=== PATIENT | male | born 1960 | race Caucasian/White ===

== ENCOUNTER → 2021-04-12 09:43 | Outpatient (CLI) | payer MEDICARE, BC, SELFPAY ==
--- NOTE | 2021-04-12 09:57 | CT_ITS ---
PROCEDURE: CT LUNG SCREENING CLINICAL INDICATION: H/O NICOTINE DEPENDENCE COMPARISON: No exams were available for comparison TECHNIQUE: The exam was performed on a GE Light Speed [address] scanner using 2.90 mGy CTDI. A low dose helical CT CHEST was performed on a multi-detector scanner. All CT scans at the facility use one or more dose reduction, viz: automated exposure control, ma/kV adjustment per patient size (including targeted exams where dose is matched to indication, i.e. head), or iterative reconstruction technique. The LDCT was performed in a facility that meets the criteria for the screening program. Data regarding this exam was submitted to ACR which is an approved registry. The order for this exam indicates that it came as a result of a lung cancer screening counseling shard decision-making visit that included all the elements required of such a visit including smoking cessation. The radiologist interpreting this exam meets the CMS criteria for the LDCT lung cancer screening program. The exam is reported using the Lung-RADS classification scale and reported to the ACR registry. NOTE: This study was performed for the specific purposes of lung cancer screening and is not an alternative to diagnostic chest CT. RADIATION DOSE: CTDI vol(CT dose Index-volume) = 2.90mG DLP (Dose Length Product) = 109.94 mGcm FINDINGS: COPD. Paraseptal and centrilobular emphysematous changes. Scattered areas of scarring. There is some faint ground-glass attenuation in the left lower lobe. Left hemidiaphragm elevated. OTHER FINDINGS: Splenomegaly at 14 cm. IMPRESSION: Lung-RADS Category 2 Benign Appearance or Behavior Follow-up: Continue annual screening with LDCT in 12 months There is some faint ground-glass attenuation in the left lower lobe. This is nonspecific and could be inflammatory or infectious or related to volume loss with elevated left hemidiaphragm. Splenomegaly Dictated by: Jake Berger MD 04/15/2021 07:42 Jake Berger MD in [place] 04/15/2021 07:42
--- NOTE | 2021-04-12 09:58 | US_ITS ---
PROCEDURE: US ABD. AORTA SCREENING CLINICAL INDICATION: H/O NICOTINE DEPENDENCE COMPARISON: No exams were available for comparison FINDINGS: No evidence of abdominal aortic aneurysm. Proximal common iliacs have an unremarkable appearance. IMPRESSION: Negative for abdominal aortic aneurysm Dictated by: Jake Berger MD 04/12/2021 16:46 Jake Berger MD in [facility] 04/12/2021 16:46
== END ==
PROVIDERS: PCP Internal Medicine Adolescent Medicine; Visit Provider Internal Medicine Adolescent Medicine
DX: Z87.891 Personal history of nicotine dependence (principal); Z12.2 Encounter for screening for malignant neoplasm of respiratory organs
CPT/HCPCS: 71271; 76705

== ENCOUNTER → 2021-06-12 16:00 | Outpatient (CLI) | payer MEDICARE, BC, SELFPAY ==
[2021-06-12 18:05] LABS: Basophils # 0.1 K/mm3 (0-0.2); Basophils % 1.4 % (0.1-2.0); Eosinophils # 0.3 K/mm3 (0.0-0.4); Eosinophils % 2.8 % (0.1-12.0); Hematocrit 47.5 % (42.0-52.0); Hemoglobin 15.2 g/dL (14.1-18.0); Lymphocytes # 2.4 K/mm3 (0.7-4.5); Lymphocytes % 25.8 % (10-50); Mean Corpuscular Hemoglobin 29.4 pg (27.0-31.2); Mean Corpuscular Volume 92.1 fl (80-94); Mean Platelet Volume 10.4 fl (7.4-10.4); Monocytes # 0.6 K/mm3 (0.1-1.0); Monocytes % 6.4 % (1.7-9.3); Neutrophils % 63.6 % (37.0-80.0); Platelet Count 212 K/mm3 (142-424); Red Blood Count 5.16 M/mm3 (4.60-6.20); Red Cell Distribution Width 14.9 % (11.5-17.5); White Blood Count 9.4 K/mm3 (4.8-10.8)
[2021-06-12 18:09] LABS: Alanine Aminotransferase 67 U/L (12-78); Albumin/Globulin Ratio 1.4 (1.1-1.8); Alkaline Phosphatase 98 U/L (38-126); Anion Gap 12.5 mEq/L (5-15); Aspartate Amino Transferase 113 U/L (17-59); Bilirubin,Total 0.5 mg/dl (0.2-1.3); Blood Urea Nitrogen 18 mg/dl (9-20); Calcium 9.4 mg/dl (8.4-10.2); Carbon Dioxide 24 mmol/L (22.0-30.0); Chloride 101 mmol/L (98-107); Chol/HDL Ratio 4.1 (1-3.5); Cholesterol 127 mg/dl (140-200); Estimated Glomerular Filt Rate 56 ml/min (>60); GFR (African American) 67 ML/MIN (>60); Globulin 2.8 g/dL (1.3-3.2); Glucose 255 mg/dl (74-100); HDL Cholesterol 31 mg/dl (40-60); Potassium 4.5 mmoL/L (3.5-5.1); Sodium 133 mmol/L (136-145); Total Protein,Serum 6.8 g/dl (6.3-8.2)
[2021-06-12 18:17] LABS: Triglycerides 427 mg/dl (30-150)
[2021-06-12 18:18] LABS: Hemoglobin A1C 8.9 % (4.0-6.0)
[2021-06-12 18:19] LABS: Direct LDL Cholesterol 56.94 mg/dL (100-129)
[2021-06-12 18:27] LABS: 25-OH Vitamin D, Total 31.7 ng/mL (30-100); Free T4 (Free Thyroxine) 1.69 ng/dl (0.78-2.19)
[2021-06-12 18:41] LABS: Thyroid Stimulating Hormone 0.81 uIU/mL (0.465-4.68)
[2021-06-14 11:24] LABS: C-Peptide 3.3 ng/mL (1.1-4.4)
== END ==
PROVIDERS: Visit Provider Emergency Medicine
DX: E13.9 Other specified diabetes mellitus without complications (principal); E55.9 Vitamin D deficiency, unspecified
CPT/HCPCS: 80053; 80061; 82306; 83036; 84439; 84443; 84681; 85025

== ENCOUNTER → 2021-06-19 09:55 | Outpatient (CLI) | payer MEDICARE, BC, SELFPAY ==
--- NOTE | 2021-06-19 09:56 | CA_ITS ---
APPROVED REPORT EXAM: Comprehensive 2D, Doppler, and color-flow Echocardiogram Match Up Worker: Elena Lewis RDCS Ht: 6 ft 2 in Wt: 295lbs BSA: 2.56 BP: 140/80 mmHg Indications: HX OF AF,COPD,HTN,DM,MORBID OBESITY M-Mode Dimensions RVDd 2.05 cm (0.9-2.6) LA Diam 3.27 cm (1.9-4.0) LVDd 5.55 cm (3.5-5.7) Ao Diam 3.35 cm (2.0-3.7) LVDs 4.06 cm (3.5-5.7) IVSd 0.88 cm (0.6-1.1) PWd 0.92 cm (0.6-1.1) EF (Teich) 51.80% FS 26.80% EDV (Teich) 150.50 mL ESV (Teich) 72.50 mL LV Diastology E Decel Time 220.00 (160-240 msec) E/A Ratio 1.0 MED E' 6.00 (< 7 cm/sec) E'/MED E' Ratio 16.20 (>14) Mitral Valve MV E Max Dominic. 97.00 (40-130 cm/s) MV A Velocity 100.00 (40-130 cm/s) E/A Ratio 0.97 MV Decel. Time 220.00 (160-240 ms) MV PHT 64.00 ms Left Ventricle Left atrium is mildly enlarged, left ventricle is normal size, mild concentric left ventricular hypertrophy, visually estimated ejection fraction 50% with no obvious regional wall motion abnormality, endocardial surfaces are poorly visualized, diastolic parameters are inconclusive in the study. Right Ventricle Right atrium and right ventricle are mildly enlarged with normal contractility. Aortic Valve Aortic valve is minimally thickened and fibrosed, there is no aortic stenosis or aortic insufficiency. Mitral Valve Mitral valve is grossly normal, there is trace mitral regurgitation. Tricuspid Valve Tricuspid valve grossly normal, there is trace tricuspid regurgitation, tricuspid regurgitation jet velocity is inadequate for calculation of the right ventricular systolic pressure. Pulmonic Valve Pulmonic valve is poorly visualized. Great Vessels Aortic root is normal size. Inferior vena cava is poorly visualized. Pericardium No significant pericardial effusion noted. Conclusion 1. Mild biatrial enlargement, normal left ventricular size, mild concentric left ventricular hypertrophy, visually estimated ejection fraction 50% with no obvious regional wall motion abnormality, diastolic parameters are inconclusive in the study. 2. Mildly enlarged right ventricle with normal contractility. 3. Trace mitral and tricuspid regurgitation. 4. No significant pericardial effusion. 5. Inferior vena cava is poorly visualized. Electronically signed by : Juan Phillips MD 06/19/2021 20:06:05
[2021-06-19 12:11] LABS: Prostate Specific Ag Screen 1.6 ng/ml (0.0-4.0)
[2021-06-20 12:35] LABS: Hep A Ab, IgM Negative (Negative); Hepatitis B Core Antibody IgM Negative (Negative); Hepatitis B Surface Antigen Negative (Negative); Hepatitis C Antibody <0.1 s/co ratio (0.0-0.9)
== END ==
PROVIDERS: PCP Emergency Medicine; Visit Provider Emergency Medicine
DX: E13.9 Other specified diabetes mellitus without complications (principal); R01.1 Cardiac murmur, unspecified; Z12.5 Encounter for screening for malignant neoplasm of prostate; R74.01 Elevation of levels of liver transaminase levels; Z79.4 Long term (current) use of insulin; Z72.0 Tobacco use
CPT/HCPCS: 36415; 80074; 93306; G0103

== ENCOUNTER → 2021-08-21 09:30 | Outpatient (CLI) | payer MEDICARE, BC, SELFPAY ==
[2021-08-21 20:14] LABS: Barbiturates Screen,Urine Negative ng/ml (<200)
[2021-08-21 20:15] LABS: Benzodiazepines Screen,Urine Negative ng/ml (<200)
[2021-08-21 20:16] LABS: Amphetamine/Metha Screen,Urine Negative ng/ml (<1000); Cannabinoid Screen,Urine Negative ng/ml (<50)
[2021-08-21 20:17] LABS: Cocaine Screen,Urine Negative ng/ml (<300); Methadone Screen,Urine Negative ng/ml (<300)
[2021-08-21 20:18] LABS: Opiate Screen,Urine Negative ng/ml (<300)
[2021-08-21 20:19] LABS: Phencyclidine Screen,Urine Negative ng/ml (<25)
== END ==
PROVIDERS: Visit Provider Emergency Medicine
DX: Z79.899 Other long term (current) drug therapy (principal)
CPT/HCPCS: 80305

== ENCOUNTER → 2021-10-16 07:09 | Outpatient (CLI) | payer MEDICARE, BC, SELFPAY ==
[2021-10-15 19:08] LABS: Basophils % 0.2 % (0.1-2.0); Eosinophils # 0.1 K/mm3 (0.0-0.4); Eosinophils % 1.9 % (0.1-12.0); Hematocrit 49.1 % (42.0-52.0); Hemoglobin 16.1 g/dL (14.1-18.0); Lymphocytes # 2.1 K/mm3 (0.7-4.5); Lymphocytes % 28.2 % (10-50); Mean Corpuscular HGB Conc 32.8 g/dL (31.8-35.4); Mean Corpuscular Hemoglobin 30.3 pg (27.0-31.2); Mean Corpuscular Volume 92.4 fl (80-94); Mean Platelet Volume 10.5 fl (7.4-10.4); Monocytes # 0.6 K/mm3 (0.1-1.0); Monocytes % 7.4 % (1.7-9.3); Neutrophils # 4.7 K/mm3 (1.8-7.8); Neutrophils % 62.6 % (37.0-80.0); Platelet Count 176 K/mm3 (142-424); Red Blood Count 5.31 M/mm3 (4.60-6.20); Red Cell Distribution Width 14.7 % (11.5-17.5); White Blood Count 7.5 K/mm3 (4.8-10.8)
[2021-10-15 19:42] LABS: Alanine Aminotransferase 92 U/L (12-78); Albumin Level 3.9 g/dl (3.5-5.0); Albumin/Globulin Ratio 1.2 (1.1-1.8); Alkaline Phosphatase 123 U/L (38-126); Anion Gap 13.9 mEq/L (5-15); Aspartate Amino Transferase 168 U/L (17-59); Bilirubin,Total 0.2 mg/dl (0.2-1.3); Blood Urea Nitrogen 21 mg/dl (9-20); Calcium 9.7 mg/dl (8.4-10.2); Carbon Dioxide 28 mmol/L (22.0-30.0); Chloride 93 mmol/L (98-107); Chol/HDL Ratio 4.1 (1-3.5); Cholesterol 147 mg/dl (140-200); Estimated Glomerular Filt Rate 47 ml/min (>60); GFR (African American) 57 ML/MIN (>60); Globulin 3.2 g/dL (1.3-3.2); Glucose 309 mg/dl (74-100); HDL Cholesterol 36 mg/dl (40-60); Potassium 4.9 mmoL/L (3.5-5.1); Sodium 130 mmol/L (136-145); Total Protein,Serum 7.1 g/dl (6.3-8.2); Triglycerides 393 mg/dl (30-150); VLDL Cholesterol 79 mg/dL (0-40)
[2021-10-15 19:54] LABS: Direct LDL Cholesterol 53.34 mg/dL (100-129)
[2021-10-15 19:59] LABS: Hemoglobin A1C 8.9 % (4.0-6.0)
== END ==
PROVIDERS: PCP Emergency Medicine; Visit Provider Emergency Medicine
DX: E13.9 Other specified diabetes mellitus without complications (principal); E66.9 Obesity, unspecified; Z68.38 Body mass index [BMI] 38.0-38.9, adult; Z79.4 Long term (current) use of insulin
CPT/HCPCS: 80053; 80061; 83036; 85025

== ENCOUNTER → 2021-10-29 08:45 | Outpatient (CLI) | payer MEDICARE, BC, SELFPAY ==
--- NOTE | 2021-10-29 08:45 | US_ITS ---
FINAL REPORT CLINICAL HISTORY: elevated liver enzymes; obesity FINDINGS: Sonographic images of the abdomen were obtained. The liver has an unremarkable appearance with normal echogenicity. The gallbladder has an unremarkable appearance without evidence of gallstones. There is no evidence of biliary ductal dilatation. The common hepatic duct measures 4 mm, which is within normal limits. Limited images of the pancreas are unremarkable. The spleen is enlarged measuring 14.5 cm. The right kidney measures 10.6 cm in length. There are 3 right renal cysts measuring up to 2.7 cm The left kidney measures 12.0 cm in length. There is normal renal echogenicity. There is no evidence of hydronephrosis. The aorta has an unremarkable appearance. Limited images of the inferior vena cava are unremarkable. IMPRESSION: Splenomegaly. Right renal cysts. Reviewed, Interpreted and Dictated by Thad Johansen III, MD Transcribed by Cleo Best Authenticated and [facility]
== END ==
PROVIDERS: PCP Emergency Medicine; Visit Provider Emergency Medicine
DX: R74.8 Abnormal levels of other serum enzymes (principal)
CPT/HCPCS: 76700

== ENCOUNTER → 2021-11-06 07:08 | Outpatient (CLI) | payer MEDICARE, BC, SELFPAY ==
[2021-11-05 20:21] LABS: Hemoglobin A1C 8.8 % (4.0-6.0)
== END ==
PROVIDERS: PCP Emergency Medicine; Visit Provider Emergency Medicine
DX: E13.9 Other specified diabetes mellitus without complications (principal); Z79.4 Long term (current) use of insulin
CPT/HCPCS: 83036

== ENCOUNTER → 2022-01-02 14:54 | Outpatient (POV) | payer MEDICARE, BC, SELFPAY | PROVIDERS: Visit Provider Internal Medicine Nephrology | DX: Z00.00 Encounter for general adult medical examination without abnormal findings (principal) ==

== ENCOUNTER → 2022-01-13 13:31 | Outpatient (CLI) | payer MEDICARE, BC, SELFPAY ==
[2022-01-13 16:20] LABS: Microscopic, Urine URINE MICROSCOPIC (MICROSCOPIC)
[2022-01-13 18:20] LABS: Appearance,Urine CLEAR (Clear); Bilirubin,Urine Negative (Negative); Blood, Urine Negative (Negative); Color,Urine YELLOW (Yellow); Glucose,Urine (UA) 1+ (Negative); Ketones,Urine Negative (Negative); Leukocyte Esterase,Urine Negative (Negative); Nitrate,Urine Negative (Negative); Protein,Urine Negative (Negative); Urobilinogen,Urine 0.2 EU/dl (0.2)
[2022-01-13 18:20] LABS: Hematocrit 48.3 % (42.0-52.0); Hemoglobin 15.2 g/dL (14.1-18.0); Mean Corpuscular HGB Conc 31.6 g/dL (31.8-35.4); Mean Corpuscular Hemoglobin 30.1 pg (27.0-31.2); Mean Corpuscular Volume 95.3 fl (80-94); Platelet Count 256 K/mm3 (142-424); Red Blood Count 5.07 M/mm3 (4.60-6.20); Red Cell Distribution Width 14.8 % (11.5-17.5); White Blood Count 11.8 K/mm3 (4.8-10.8)
[2022-01-13 18:42] LABS: Creatinine,Urine Random 59 mg/dL (Not Estab.)
[2022-01-13 20:39] LABS: Hemoglobin A1C 8.6 % (4.0-6.0)
[2022-01-13 20:43] LABS: Anion Gap 17.2 mEq/L (5-15); Blood Urea Nitrogen 29 mg/dl (9-20); Calcium 9.3 mg/dl (8.4-10.2); Carbon Dioxide 32 mmol/L (22.0-30.0); Chloride 92 mmol/L (98-107); Estimated Glomerular Filt Rate 38 ml/min (>60); GFR (African American) 46 ML/MIN (>60); Glucose 136 mg/dl (74-100); Phosphorous 3.6 mg/dl (2.5-4.5); Potassium 5.2 mmoL/L (3.5-5.1); Sodium 136 mmol/L (136-145)
[2022-01-13 21:51] LABS: Bacteria,Urine Trace /lpf; WBC,Urine Occasional #/hpf (0-3)
== END ==
PROVIDERS: PCP Emergency Medicine; Visit Provider Internal Medicine Nephrology
DX: E13.9 Other specified diabetes mellitus without complications (principal); N18.30 Chronic kidney disease, stage 3 unspecified
CPT/HCPCS: 36415; 80069; 81001; 82570; 83036; 84155; 85014; 85018; 85048; 85049

== ENCOUNTER → 2022-04-14 13:03 | Outpatient (POV) | payer MEDICARE, MEDICAID, SELFPAY | PROVIDERS: Visit Provider Internal Medicine Nephrology | DX: Z00.00 Encounter for general adult medical examination without abnormal findings (principal) ==

== ENCOUNTER → 2022-06-11 23:30 | Outpatient (CLI) | payer MEDICARE, MEDICAID, SELFPAY ==
[2022-06-11 19:21] LABS: Anion Gap 11.7 mEq/L (5-15); Blood Urea Nitrogen 12 mg/dl (9-20); Calcium 9.1 mg/dl (8.4-10.2); Carbon Dioxide 28 mmol/L (22.0-30.0); Chloride 100 mmol/L (98-107); Estimated Glomerular Filt Rate 51 ml/min (>60); GFR (African American) 62 ML/MIN (>60); Glucose 261 mg/dl (74-100); Potassium 4.7 mmoL/L (3.5-5.1); Sodium 135 mmol/L (136-145)
[2022-06-13 11:55] LABS: C-Peptide 7.3 ng/mL (1.1-4.4)
== END ==
PROVIDERS: PCP Emergency Medicine; Visit Provider Emergency Medicine
DX: E13.9 Other specified diabetes mellitus without complications (principal); Z79.4 Long term (current) use of insulin
CPT/HCPCS: 80048; 84681

== ENCOUNTER → 2022-08-21 16:06 | Outpatient (CLI) | payer MEDICARE, MEDICAID, SELFPAY | PROVIDERS: PCP Nurse Practitioner Family; Visit Provider Nurse Practitioner Family | DX: N39.0 Urinary tract infection, site not specified (principal) | CPT/HCPCS: 87086 ==

== ENCOUNTER → 2022-10-03 10:22 | Outpatient (CLI) | payer MEDICARE, MEDICAID, SELFPAY ==
[2022-10-03 18:16] LABS: Basophils % 0.3 % (0.1-2.0); Eosinophils # 0.3 K/mm3 (0.0-0.4); Hematocrit 47.3 % (42.0-52.0); Hemoglobin 15.1 g/dL (14.1-18.0); Lymphocytes # 2.5 K/mm3 (0.7-4.5); Lymphocytes % 25.3 % (10-50); Mean Corpuscular HGB Conc 31.9 g/dL (31.8-35.4); Mean Corpuscular Hemoglobin 28.7 pg (27.0-31.2); Mean Corpuscular Volume 89.9 fl (80-94); Mean Platelet Volume 9.7 fl (7.4-10.4); Monocytes # 0.6 K/mm3 (0.1-1.0); Monocytes % 6.5 % (1.7-9.3); Neutrophils # 6.4 K/mm3 (1.8-7.8); Neutrophils % 64.9 % (37.0-80.0); Platelet Count 187 K/mm3 (142-424); Red Blood Count 5.26 M/mm3 (4.60-6.20); Red Cell Distribution Width 15.2 % (11.5-17.5); White Blood Count 9.9 K/mm3 (4.8-10.8)
[2022-10-03 18:34] LABS: Alanine Aminotransferase 79 U/L (12-78); Albumin/Globulin Ratio 1.3 (1.1-1.8); Alkaline Phosphatase 116 U/L (38-126); Anion Gap 15.6 mEq/L (5-15); Aspartate Amino Transferase 115 U/L (17-59); Bilirubin,Total 0.5 mg/dl (0.2-1.3); Blood Urea Nitrogen 24 mg/dl (9-20); Calcium 9.5 mg/dl (8.4-10.2); Carbon Dioxide 26 mmol/L (22.0-30.0); Chloride 97 mmol/L (98-107); Chol/HDL Ratio 3.7 (1-3.5); Cholesterol 138 mg/dl (140-200); Estimated Glomerular Filt Rate 47 ml/min (>60); GFR (African American) 57 ML/MIN (>60); Globulin 3.2 g/dL (1.3-3.2); Glucose 168 mg/dl (74-100); HDL Cholesterol 37 mg/dl (40-60); Potassium 4.6 mmoL/L (3.5-5.1); Sodium 134 mmol/L (136-145); Total Protein,Serum 7.2 g/dl (6.3-8.2); Triglycerides 318 mg/dl (30-150); VLDL Cholesterol 64 mg/dL (0-40)
[2022-10-03 18:44] LABS: Direct LDL Cholesterol 57.99 mg/dL (100-129)
[2022-10-03 18:45] LABS: Hemoglobin A1C 7.9 % (4.0-6.0)
[2022-10-03 18:48] LABS: T4 (Thyroxine) 10.8 ug/dl (5.53-11.0)
[2022-10-03 18:54] LABS: 25-OH Vitamin D, Total 39.4 ng/mL (30-100)
[2022-10-03 19:08] LABS: Thyroid Stimulating Hormone 0.55 uIU/mL (0.465-4.68)
[2022-10-03 19:09] LABS: Amphetamine/Metha Screen,Urine Negative ng/ml (<1000)
[2022-10-03 19:10] LABS: Barbiturates Screen,Urine Negative ng/ml (<200); Benzodiazepines Screen,Urine Negative ng/ml (<200)
[2022-10-03 19:11] LABS: Cannabinoid Screen,Urine Negative ng/ml (<50)
[2022-10-03 19:12] LABS: Cocaine Screen,Urine Negative ng/ml (<300); Methadone Screen,Urine Negative ng/ml (<300)
[2022-10-03 19:13] LABS: Opiate Screen,Urine Negative ng/ml (<300)
[2022-10-03 19:15] LABS: Phencyclidine Screen,Urine Negative ng/ml (<25)
[2022-10-03 19:43] LABS: Creatinine,Urine Random 690 mg/dL (Not Estab.); Microalbumin/Creatinine Ratio 5.1
[2022-10-06 15:29] LABS: C-Peptide 5.1 ng/mL (1.1-4.4)
== END ==
LOC: LAB.DROPOF 10-04 10:23
PROVIDERS: PCP Emergency Medicine; Visit Provider Emergency Medicine
DX: E11.9 Type 2 diabetes mellitus without complications; L03.90 Cellulitis, unspecified; N18.30 Chronic kidney disease, stage 3 unspecified; Z79.899 Other long term (current) drug therapy; B95.7 Other staphylococcus as the cause of diseases classified elsewhere
CPT/HCPCS: 80053; 80061; 80305; 82043; 82306; 82570; 83036; 84436; 84443; 84681; 85025; 87070; 87186; 87205

== ENCOUNTER → 2022-10-13 13:57 | Outpatient (CLI) | payer MEDICARE, MEDICAID, SELFPAY ==
[2022-10-13 14:08] LABS: Microscopic, Urine URINE MICROSCOPIC (MICROSCOPIC)
[2022-10-13 14:44] LABS: Hemoglobin 14.9 g/dL (14.1-18.0); Mean Corpuscular HGB Conc 31.6 g/dL (31.8-35.4); Mean Corpuscular Hemoglobin 28.5 pg (27.0-31.2); Mean Corpuscular Volume 90.3 fl (80-94); Platelet Count 170 K/mm3 (142-424); Red Blood Count 5.21 M/mm3 (4.60-6.20); Red Cell Distribution Width 14.9 % (11.5-17.5); White Blood Count 8.8 K/mm3 (4.8-10.8)
[2022-10-13 15:27] LABS: Creatinine,Urine Random 31 mg/dL (Not Estab.)
[2022-10-13 15:35] LABS: Albumin Level 3.9 g/dl (3.5-5.0); Anion Gap 14.3 mEq/L (5-15); Blood Urea Nitrogen 21 mg/dl (9-20); Calcium 9.2 mg/dl (8.4-10.2); Carbon Dioxide 29 mmol/L (22.0-30.0); Chloride 97 mmol/L (98-107); Estimated Glomerular Filt Rate 51 ml/min (>60); GFR (African American) 62 ML/MIN (>60); Glucose 147 mg/dl (74-100); Phosphorous 3.5 mg/dl (2.5-4.5); Potassium 5.3 mmoL/L (3.5-5.1); Sodium 135 mmol/L (136-145)
[2022-10-13 21:05] LABS: Appearance,Urine CLEAR (Clear); Bilirubin,Urine Negative (Negative); Blood, Urine Negative (Negative); Glucose,Urine (UA) 1+ (Negative); Ketones,Urine Negative (Negative); Leukocyte Esterase,Urine Negative (Negative); Nitrate,Urine Negative (Negative); PH,Urine 6.5 (5.0-8.5); Protein,Urine Negative (Negative); Urobilinogen,Urine 0.2 EU/dl (0.2)
[2022-10-13 21:06] LABS: Color,Urine Yellow (Yellow)
[2022-10-13 22:06] LABS: Squamous Epithelial Cell,Urine Occasional #/hpf (0-5)
== END ==
PROVIDERS: PCP Emergency Medicine; Visit Provider Internal Medicine Nephrology
DX: N18.30 Chronic kidney disease, stage 3 unspecified (principal)
CPT/HCPCS: 36415; 80069; 81001; 82570; 84155; 85014; 85018; 85048; 85049

== ENCOUNTER → 2022-11-10 07:59 | Outpatient (CLI) | payer MEDICARE, MEDICAID, SELFPAY ==
[2022-11-10 08:47] LABS: Basophils # 0.1 K/mm3 (0-0.2); Basophils % 0.7 % (0.1-2.0); Eosinophils # 0.5 K/mm3 (0.0-0.4); Eosinophils % 5.3 % (0.1-12.0); Hematocrit 48.8 % (42.0-52.0); Hemoglobin 15.8 g/dL (14.1-18.0); Lymphocytes # 2.7 K/mm3 (0.7-4.5); Lymphocytes % 32.5 % (10-50); Mean Corpuscular HGB Conc 32.4 g/dL (31.8-35.4); Mean Corpuscular Hemoglobin 28.7 pg (27.0-31.2); Mean Corpuscular Volume 88.7 fl (80-94); Mean Platelet Volume 8.9 fl (7.4-10.4); Monocytes # 0.6 K/mm3 (0.1-1.0); Neutrophils # 4.5 K/mm3 (1.8-7.8); Neutrophils % 54.5 % (37.0-80.0); Platelet Count 167 K/mm3 (142-424); Red Blood Count 5.49 M/mm3 (4.60-6.20); Red Cell Distribution Width 14.7 % (11.5-17.5); White Blood Count 8.3 K/mm3 (4.8-10.8)
[2022-11-10 10:15] LABS: Alanine Aminotransferase 72 U/L (12-78); Albumin Level 4.3 g/dl (3.5-5.0); Alkaline Phosphatase 94 U/L (38-126); Aspartate Amino Transferase 109 U/L (17-59); Blood Urea Nitrogen 26 mg/dl (9-20); Calcium 9.8 mg/dl (8.4-10.2); Carbon Dioxide 30 mmol/L (22.0-30.0); Chloride 98 mmol/L (98-107); Chol/HDL Ratio 3.9 (1-3.5); Cholesterol 136 mg/dl (140-200); Estimated Glomerular Filt Rate 41 ml/min (>60); GFR (African American) 49 ML/MIN (>60); Glucose 84 mg/dl (74-100); HDL Cholesterol 35 mg/dl (40-60); Magnesium 1.7 mg/dl (1.6-2.3); Sodium 136 mmol/L (136-145); Total Protein,Serum 7.8 g/dl (6.3-8.2); Triglycerides 291 mg/dl (30-150); VLDL Cholesterol 58 mg/dL (0-40)
[2022-11-10 10:26] LABS: Direct LDL Cholesterol 53.94 mg/dL (100-129)
[2022-11-11 00:03] LABS: Bilirubin,Direct 0.6 mg/dl (0.0-0.4)
[2022-11-11 00:04] LABS: Bilirubin,Total 0.6 mg/dl (0.2-1.3)
== END ==
PROVIDERS: PCP Emergency Medicine; Visit Provider Nurse Practitioner
DX: R07.9 Chest pain, unspecified (principal); N18.30 Chronic kidney disease, stage 3 unspecified; R06.00 Dyspnea, unspecified; E13.9 Other specified diabetes mellitus without complications; Z79.4 Long term (current) use of insulin
CPT/HCPCS: 80048; 80061; 80076; 83735; 85025

== ENCOUNTER → 2022-11-14 13:49 | Outpatient (POV) | payer MEDICARE, MEDICAID, SELFPAY | PROVIDERS: Visit Provider Internal Medicine Nephrology | DX: Z00.00 Encounter for general adult medical examination without abnormal findings (principal) ==

== ENCOUNTER → 2022-11-20 06:36 | Outpatient (CLI) | payer MEDICARE, MEDICAID, SELFPAY ==
--- NOTE | 2022-11-20 | CA_ITS ---
APPROVED REPORT Exam: Pharmacologic Technologist: Coleen Allan, Ht: 6 ft 2 in Wt: 304 lbs BSA: 2.60 m2 HR: 64 bpm BP: 139/77 mmHg Rhythm: NSR, NON-SPECIFIC T-WAVE CHANGES IN INFERIOR LEADS Medical History Medical History: HTN, Hyperlipidemia, Diabetes, Smoking Medications: Lovastatin,,,,, Duoneb,,,,, TAMSULOSIN,,,,, Albuterol,,,,, Lansoprazole,,,,, MeLOXICAM,,,,, Humulin R,,,,, Cyclobenzaprine,,,,, Pregabalin,,,,, FeNOfibrate Micronized,,,,, BuMETANIDE,,,,, Apixaban,,,,, Allergies: No known drug allergies Cardiac Risk Factors: HTN, Hyperlipidemia, Diabetes , , Smoking Stress Test Details Test: LEXISCAN HR Resting HR: 68 bpm Max Heart Rate (APMHR): 156 bpm Max HR Achieved: 100 bpm Target HR (85% APMHR): 133 bpm % of APMHR: 64 Recovery HR: 77 bpm BP Resting BP: 139/77 mmHg Max BP: 177/85 mmHg Recovery BP: 166.0/76.0 mmHg ECG Resting ECG: NSR, T-WAVE CHANGES IN INFERIOR LEADS Stress ECG: NO CHANGE Arrhythmia: NONE Recovery ECG: NO CHANGE Recovery Arrhythmia: NONE Clinical Exercise duration: 04:00 min Highest Stage Achieved: Exercise capacity: 1.0 METs Stress ECG Conclusion PT HAD SOA, AND HEAD DISCOMFORT. NO CP NON-DIAGNOSTIC LEXISCAN STRESS TEST DUE TO BASELINE ST-T ABNORMALITIES MYOVIEW IMAGES REPORTED SEPARATELY Test Summary REST 02:35 . . 68 . 139/ 77 . . Stage 1 01:00 . . 85 . . . . Stage 2 01:00 . . 99 . . . . Stage 3 01:00 . . 96 . 128/ 86 . . Stage 4 01:00 . . 85 . 170/ 81 . Stop exercise at 04:00 RECOVERY 01:00 . . 82 . . . . RECOVERY 02:00 . . 78 . 166/ 79 . . RECOVERY 03:00 . . 77 . 166/ 79 . . RECOVERY 03:41 . . 79 . 166/ 76 . . Electronically signed by : Alexus Matos, 11/21/2022 12:45:26
--- NOTE | 2022-11-20 06:45 | NM_ITS ---
APPROVED REPORT Exam: Nuclear Stress Test Indication: chest pain..soa Patient Location: Outpatient Stress Tech: Coleen Allan Ht: 6 ft 2 in Wt: 298 lbs HR: 68 bpm BP: 139/77 mmHg BSA: 2.58 m2 Rhythm: NSR TID: 1.22 BMI: 38.2 History: chest pain..soa Procedure: Patient received 0.4 mg of intravenous Lexiscan, resting heart rate 68 bpm, resting blood pressure 139/77 mmHg, with Lexiscan maximum heart rate achieved was 100 bpm which is 85 % of the maximum predicted heart rate and blood pressure was 177/85 mmHg. With Lexiscan, patient denied any complaint of chest pain. Cardiac Stress and Resting SPECT Images: Cardiac Stress and Resting SPECT images were obtained using technetium 99m Myoview 31.4 mCi stress and 10.98 mCi at rest. Resting and stress imaging in both supine and prone positions demonstrate a medium sized, moderate, predominantly fixed perfusion defect basal to mid inferior and inferoseptal LV abbott, with some surrounding regions of reversibility. Gated imaging demonstrates normal global and regional LV systolic function. LVEF is calculated at 61%. Conclusion: Medium sized, moderate, predominantly fixed perfusion defect basal to mid inferior and inferoseptal LV abbott, with some surrounding regions of reversibility. Gated imaging demonstrates normal global and regional LV systolic function. LVEF is calculated at 61%. Electronically signed by : Alexus Matos, 11/21/2022 12:51:33
== END ==
LOC: RAD 06:36
PROVIDERS: PCP Emergency Medicine; Visit Provider Nurse Practitioner
DX: R07.9 Chest pain, unspecified (principal)
CPT/HCPCS: 78452; 93017; A9502; J2785

== ENCOUNTER 2022-11-25 15:00 | Outpatient (RCR) | payer MEDICARE, MEDICAID, SELFPAY ==
--- NOTE | 2022-10-27 12:01 | HMH.PTOPWND ---
Rehab Outpt Wound Evaluation Rehab OP Wound Evaluation Start: 10/27/22 10:52 Freq: Status: Active Protocol: Document 10/27/22 11:26 NIKA (Rec: 10/27/22 12:00 PHORCORDELL [id number]) E-signed By Jaswant Villarreal, PT Subjective/History History History This is the initial PT eval for Andry Qureshi, 62 yowm who presents with chronic B LE edema, L greater than R, x ~ 4 yrs. He reports initially having a bout of cellulitis in his L lower leg due to a spider bite and he has been dealing with issues ever since . He reports no pain associated with the edema, but he does have intermittent pain due to neuropathy. He has no palpation tenderness at this time as well. He has PMH of HTN, DM, HLD, a-fib with anticoagulaion. Subjective Subjective He presents with 1+ pitting edema to the R lower leg, 2+ pitting edema to the L lower leg. Considerable hemosiderin staining to the L lower leg and mild on the R lower leg. Lymphedema Eval Classification of Lymphedema Secondary Lymphedema Yes: CVI and Neuropathy Stemmer's sign Stemmer's Sign no Stage of Lymphedema Lymphedema stages Stage I (Pitting edema, reduces w/ elevation, no fibrosis) Skin Changes Dry Skin Yes Taut, Shiny Skin Yes: scar tissue Redness Yes Brittle Uneven Nails Yes Discoloration of Skin Yes: hemosiderin staining Other Changes Yes: neuropathy Pain Scale Pain Scale (0-10) 0 Affected Extremities Areas Affected by Lymphedema/Edema Right Lower Extremity,Left Lower Extremity Manual Lymphatic Drainage Treatment Area MLD Treatment Area Right Lower Extremity,Left Lower Extremity Wound Problems/Impairments Impairments Problems/Impairmments Impaired Endurance,Impaired Walking,Impaired Standing, Impaired Recreational Activities,Increased Edema, Lymphedema Present,Subjective C/O Pain,Impaired Self C
--- NOTE | 2022-11-25 16:17 | HMH.RHREAS ---
Rehab Reassessment Rehab OP Re-assessment Start: 10/27/22 10:52 Freq: Status: Active Protocol: Document 11/25/22 16:09 NIKA (Rec: 11/25/22 16:17 NIKA [id number]) E-signed By Jaswant Villarreal, PT Rehab Re-assessment Subjective Subjective Pt reports, I feel a whole lot better in my legs. I can get up in the morning sometimes and I don't have any swelling at all. Objective Objective Notes Edema: 1+ pitting edema to R lower leg, 2+ pitting edema to L lower leg. Erythema: Continues to have an area of ~ 5 cm x 5 cm of mild blanchable erythema on the R anterior rhodes, but this has decreased since initial evaluation. Continued chronic hemosiderin staining noted to circumference of L lower leg, but no erythema noted. Pain: remains 0/10 and 0/4 TTP noted. Assessment Progress Assessment Progressing as Expected Assessment Notes Pt has shown significant improvement in pitting edema of the R LE. He reports reduced edema has resulted in a great improvement in his ambulation ability for all standing activities at home. He continues to have increased edema with compression in standing, but is willing to try other options. He continues to need skilled intervention to return to prior level of function. Patient goals met ST,3,[address] LT,2,3,4,5,6,7 Revised Goals none Plan Plan Continue per initial POC. Frequency of Therapy 2 x/wk Duration of therapy 4 wks Time and Billing Re-Eval Time 16 Re-Eval Billing Units 1 PHYSICIAN CERTIFICATION: I certify the specified therapy services for Andry Qureshi are required, authorized, and reviewed every 30 days.
== END 2022-11-25 16:00 | disposition home or self-care (01) ==
LOC: PT 15:00
PROVIDERS: PCP Emergency Medicine; Visit Provider Nurse Practitioner Family
DX: R60.0 Localized edema (principal)
CPT/HCPCS: 97140; 97163; 97164

== ENCOUNTER 2022-12-29 08:00 | Day surgery (SDC) | payer MEDICARE, MEDICAID, SELFPAY ==
[2022-12-29] VITALS (13 sets, daily range): BP systolic 108–174; BP diastolic 62–97; PULSE 68–84; RESP 16–20; O2SAT 91–95; BMI 39.0
--- NOTE | 2022-12-29 07:07 | IR_ITS ---
APPROVED REPORT Patient Location: Outpatient Pest Control Supervisor: NATASHA Dejesus RT (R) PROCEDURES Left heart catheterization Selective coronary angiogram Drug-eluting stent deployment to the proximal circumflex artery Drug-eluting stent deployment to the proximal and mid dominant right coronary INDICATION Coronary artery disease, Abnormal Myoview, Angina pectoris Informed consent was obtained prior to the procedure. COMPLICATIONS None Estimated Blood Loss: Less than 10 mls TECHNIQUE One percent lidocaine used to anesthetize the right anterior aspect of the wrist. The right radial artery was accessed via the Seldinger technique. A 6 Singaporean sheath was placed in the right radial artery. 2.5 mg of Verapamil, 800 mcg of nitroglycerin, 1mg Lidocaine and 5000 U Heparin were given through the arterial sheath. The papa catheter was also used to perform left heart catheterization, left ventriculogram. At the end of the diagnostic procedure therapeutic ACT was administered given therapeutic ACT and the guide catheter was placed in left main artery followed by Choice PT extra-support wire down the circumflex artery. 3 mm 18 mm Anil frontier stent was placed in the proximal circumflex artery and deployed at 12 xiomara reducing the stenosis. RAJESH-3 flow was present before and after the procedure. Following this the guide catheter was placed in the right coronary artery and the wire was placed distally. A 3 mm x 38 mm Philo frontier stent was placed in the proximal right coronary artery and deployed at 14 xiomara reducing the stenosis to 0%. RAJESH-3 flow was present before and after the procedure. At the end of procedure the apparatus was removed the sheath was removed and hemostasis was achieved using TR banding patient was transferred to the postop putting in stable condition ANGIOGRAPHIC RESULTS The left main artery Normal The left anterior descending artery Has proximal smooth 30% stenosis with mid vessel 10 to 20% stenosis The circumflex artery Nondominant has a proximal eccentric 70% stenosis The right coronary artery Large dominant vessel with a long tubular 70% proximal to mid vessel stenosis The [place] ventriculogram reveals Not performed The left ventricular end-diastolic pressure 15 mmHg IMPRESSION Two-vessel coronary disease as described above Successful stent to the circumflex artery severe disease reduced to 0% with 1 drug-eluting stent Successful stenting of the proximal to mid right coronary artery severe disease reduced to 0% with 1 drug-eluting stent Mildly elevated LVEDP PLAN 1. Plavix 75 daily plus aspirin 81 mg daily 2. LDL less than 55 to be achieved with high intensity statin 3. Avoidance of tobacco products 4. Risk factor modification 5. Cardiac rehabilitation 6. Recommend patient be seen in the office tomorrow with a chemistry panel prior to his office visit to evaluate creatinine based on renal insufficiency Electronically signed by : Elier Moody MD 12/29/2022 10:13:02
[2022-12-29 08:32] LABS: Basophils # 0.1 K/mm3 (0-0.2); Basophils % 0.5 % (0.1-2.0); Eosinophils # 0.4 K/mm3 (0.0-0.4); Eosinophils % 4.5 % (0.1-12.0); Hematocrit 48.2 % (42.0-52.0); Hemoglobin 15.4 g/dL (14.1-18.0); Lymphocytes # 2.7 K/mm3 (0.7-4.5); Lymphocytes % 28.3 % (10-50); Mean Corpuscular Hemoglobin 29.1 pg (27.0-31.2); Mean Corpuscular Volume 90.9 fl (80-94); Mean Platelet Volume 9.2 fl (7.4-10.4); Monocytes # 0.6 K/mm3 (0.1-1.0); Monocytes % 6.6 % (1.7-9.3); Neutrophils # 5.6 K/mm3 (1.8-7.8); Neutrophils % 60.1 % (37.0-80.0); Platelet Count 173 K/mm3 (142-424); Red Blood Count 5.31 M/mm3 (4.60-6.20); White Blood Count 9.4 K/mm3 (4.8-10.8)
[2022-12-29 08:41] LABS: Chloride 96 mmol/L (98-107); Potassium 4.2 mmoL/L (3.5-5.1); Sodium 139 mmol/L (136-145)
[2022-12-29 08:44] LABS: Anion Gap 13.2 mEq/L (5-15); Blood Urea Nitrogen 15 mg/dl (9-20); Calcium 9.9 mg/dl (8.4-10.2); Carbon Dioxide 34 mmol/L (22.0-30.0); Creatinine Clearance Estimated 81 mL/min (50-200); Estimated Glomerular Filt Rate 38 ml/min (>60); GFR (African American) 46 ML/MIN (>60); Glucose 120 mg/dl (74-100)
[2022-12-29 11:48] LABS: CATHL Activated Clotting Time 370 SEC (74-125)
--- NOTE | 2022-12-29 13:36 | HMH.PHACL ---
PHA Software Systems Analyst Discharge Med Telemetry Nurse: Andry Qureshi has received discharge medication counseling on the following medications: -ASPIRIN (BLOOD THINNER, DAILY, TAKE WITH OR WITHOUT FOOD, UPSET STOMACH, BLEED/BRUISE RISK/LOCATION/APPEARANCE) -PLAVIX (BLOOD THINNER, DAILY, BLEED/BRUISE RISK/APPEARANCE, BUMP HEAD = GO TO ER TO RULE OUT HEAD BLEED) -LOVASTATIN (ON PREVIOUSLY, NO QUESTIONS) -METOPROLOL (ON PREVIOUSLY, NO QUESTIONS) -NO ROJAS/ARB DUE TO KIDNEY FUNCTION -START ELIQUIS BACK TOMORROW. PATIENT VERBALIZED NO QUESTIONS AT THIS TIME.
== END 2022-12-29 13:57 | disposition home or self-care (01) ==
PROVIDERS: PCP Emergency Medicine; Visit Provider Internal Medicine
DX: E11.22 Type 2 diabetes mellitus with diabetic chronic kidney disease (principal); E66.9 Obesity, unspecified; N18.30 Chronic kidney disease, stage 3 unspecified; R06.00 Dyspnea, unspecified; R07.9 Chest pain, unspecified; R94.39 Abnormal result of other cardiovascular function study; F17.210 Nicotine dependence, cigarettes, uncomplicated; Z79.4 Long term (current) use of insulin; Z79.01 Long term (current) use of anticoagulants; Z79.899 Other long term (current) drug therapy; I25.118 Atherosclerotic heart disease of native coronary artery with other forms of angina pectoris; Z68.39 Body mass index [BMI] 39.0-39.9, adult
CPT/HCPCS: 80048; 85025; 85347; 92928; 93458; 99152; C1725; C1760; C1769; C1874; C1876; C9600; J1644; Q9967

== ENCOUNTER → 2022-12-31 13:59 | Outpatient (CLI) | payer MEDICARE, MEDICAID, SELFPAY ==
[2022-12-31 15:07] LABS: Basophils % 0.4 % (0.1-2.0); Eosinophils # 0.3 K/mm3 (0.0-0.4); Eosinophils % 3.4 % (0.1-12.0); Hematocrit 45.4 % (42.0-52.0); Hemoglobin 14.9 g/dL (14.1-18.0); Mean Corpuscular HGB Conc 32.8 g/dL (31.8-35.4); Mean Corpuscular Hemoglobin 29.8 pg (27.0-31.2); Mean Corpuscular Volume 90.7 fl (80-94); Mean Platelet Volume 8.9 fl (7.4-10.4); Monocytes # 0.5 K/mm3 (0.1-1.0); Monocytes % 5.7 % (1.7-9.3); Neutrophils # 6.1 K/mm3 (1.8-7.8); Neutrophils % 68.5 % (37.0-80.0); Platelet Count 154 K/mm3 (142-424); Red Blood Count 5.01 M/mm3 (4.60-6.20); White Blood Count 8.9 K/mm3 (4.8-10.8)
[2022-12-31 16:02] LABS: Anion Gap 14.4 mEq/L (5-15); Blood Urea Nitrogen 18 mg/dl (9-20); Calcium 9.4 mg/dl (8.4-10.2); Carbon Dioxide 28 mmol/L (22.0-30.0); Chloride 98 mmol/L (98-107); Estimated Glomerular Filt Rate 41 ml/min (>60); GFR (African American) 49 ML/MIN (>60); Glucose 189 mg/dl (74-100); Potassium 4.4 mmoL/L (3.5-5.1); Sodium 136 mmol/L (136-145)
== END ==
PROVIDERS: Internal Medicine; PCP Emergency Medicine; Visit Provider Nurse Practitioner
DX: I25.10 Atherosclerotic heart disease of native coronary artery without angina pectoris (principal); Z95.5 Presence of coronary angioplasty implant and graft
CPT/HCPCS: 36415; 80048; 85025

== ENCOUNTER → 2023-04-07 23:00 | Outpatient (CLI) | payer MEDICARE, MEDICAID, SELFPAY | LOC: LAB.DROPOF 04-08 00:26 | PROVIDERS: PCP Student in an Organized Health Care Education/Training Program; Visit Provider Student in an Organized Health Care Education/Training Program | DX: R05.9 Cough, unspecified (principal) | CPT/HCPCS: 87635 ==

== ENCOUNTER → 2023-04-23 08:26 | Outpatient (CLI) | payer MEDICARE, MEDICAID, SELFPAY ==
[2023-04-23 20:11] LABS: Creatinine,Urine Random 63 mg/dL (Not Estab.)
[2023-04-23 20:14] LABS: Microalbumin/Creatinine Ratio 14.9
== END ==
PROVIDERS: PCP Internal Medicine; Visit Provider Internal Medicine
DX: E11.42 Type 2 diabetes mellitus with diabetic polyneuropathy (principal); Z79.4 Long term (current) use of insulin; Z79.85 Long-term (current) use of injectable non-insulin antidiabetic drugs
CPT/HCPCS: 82043; 82570

== ENCOUNTER 2023-05-14 13:39 | Outpatient (CLI) | payer MEDICARE, MEDICAID, SELFPAY ==
--- NOTE | 2023-05-14 13:40 | CA_ITS ---
APPROVED REPORT EXAM: Comprehensive 2D, Doppler, and color-flow Echocardiogram Safety Associate: Alia Manning CRT Ht: 6 ft 2 in Wt: 294lbs BSA: 2.56 BP: 146/68 mmHg Indications: COPD, Atrial Fibrillation, Diabetes, Obesity, CAD, Hyperlipidemia, Hypertension/HDD TDE D/T body habitus and rash under the left breast unable to obtain additional images. 2D Dimensions LA Volume 21.60 mL LA Volume Index 8.20 mL/m2 (M/F) 16-34 M-Mode Dimensions RVDd 2.04 cm (0.9-2.6) LA Diam 3.50 cm (1.9-4.0) LVDd 5.40 cm (3.5-5.7) LVDs 3.20 cm (3.5-5.7) IVSd 1.52 cm (0.6-1.1) PWd 0.60 cm (0.6-1.1) EF (Teich) 71.00% FS 40.70% EDV (Teich) 141.30 mL ESV (Teich) 41.00 mL LV Diastology E Decel Time 310 (160-240 msec) E/A Ratio 0.99 MED A' 7.60 cm/s LAT A' 11.60 cm/s Aortic Valve AO Peak GR. 4.10 mmHg Mitral Valve MV A Velocity 76.0 (40-130 cm/s) E/A Ratio 0.99 Pulmonary Valve PV Peak Velocity 107.0 (50-150 cm/s) Tricuspid Valve TR P. Velocity 141.00 cm/s RAP Estimate 10.00 mmHg RVSP 18.00 mmHg Left Ventricle The left ventricle is normal size. The left ventricular systolic function is normal. The left ventricular ejection fraction is within the normal range. There is normal left ventricular wall thickness. There is normal LV segmental wall motion. The left ventricular diastolic function is normal. LVEF is 55%. Right Ventricle The right ventricle is normal size. The right ventricular systolic function is normal. Atria The left atrium size is normal. The right atrium size is normal. There is no Doppler evidence of interatrial shunt. Aortic Valve The aortic valve opens well. There is no aortic valvular stenosis. No aortic regurgitation is present. Mitral Valve The mitral valve is normal in structure. No evidence of mitral valve stenosis. There is no mitral valve regurgitation noted. Tricuspid Valve The tricuspid valve leaflets are thin and pliable. Trace tricuspid regurgitation. There is insufficient TR jet to estimate RVSP. Pulmonic Valve The pulmonary valve is normal in structure. Trace pulmonic regurgitation. Great Vessels The aortic root is normal in size. The ascending aorta is not well-visualized. The IVC is not well-visualized. Pericardium There is no pericardial effusion. Other Information Study Quality: Technically Difficult Conclusion Technically difficult study due to poor acoustic windows. Normal biventricular systolic function. No significant valvular stenosis or regurgitation. Electronically signed by : Alexus Matos MD 05/18/2023 00:40:01
--- NOTE | 2023-05-14 14:45 | XR_ITS ---
FINAL REPORT CLINICAL HISTORY: smoker, COPD FINDINGS: Two views of the chest were obtained. The heart size and pulmonary vascularity are within normal limits. The mediastinum is normal. No acute pulmonary abnormality is identified. There is no pneumothorax. The bony thorax is intact. IMPRESSION: No active cardiopulmonary disease. Reviewed, Interpreted and Dictated by Thad Johansen III, MD Transcribed by Cleo Best Authenticated and [facility]
== END 2023-05-14 23:59 ==
LOC: RT 13:40
PROVIDERS: PCP Internal Medicine; Visit Provider Nurse Practitioner Family
DX: E66.9 Obesity, unspecified (principal); G47.33 Obstructive sleep apnea (adult) (pediatric); I25.10 Atherosclerotic heart disease of native coronary artery without angina pectoris; J44.9 Chronic obstructive pulmonary disease, unspecified; Z72.0 Tobacco use; Z68.38 Body mass index [BMI] 38.0-38.9, adult
CPT/HCPCS: 71046; 93306

== ENCOUNTER 2023-05-19 19:11 | Outpatient (CLI) | payer MEDICARE, MEDICAID, SELFPAY ==
[2023-05-19 18:18] LABS: Coronavirus 19, PCR Not Detected (NotDetected); Influenza A, PCR Not Detected (NotDetected); Influenza B, PCR Not Detected (NotDetected)
[2023-05-19 19:04] LABS: Barbiturates Screen,Urine Negative ng/ml (<200)
[2023-05-19 19:05] LABS: Benzodiazepines Screen,Urine Negative ng/ml (<200); Cannabinoid Screen,Urine Negative ng/ml (<50)
[2023-05-19 19:06] LABS: Cocaine Screen,Urine Negative ng/ml (<300); Methadone Screen,Urine Negative ng/ml (<300)
[2023-05-19 19:07] LABS: Opiate Screen,Urine Negative ng/ml (<300)
[2023-05-19 19:08] LABS: Phencyclidine Screen,Urine Negative ng/ml (<25)
[2023-05-19 19:14] LABS: Amphetamine/Metha Screen,Urine Negative ng/ml (<1000)
[2023-05-19 19:15] LABS: Alanine Aminotransferase 50 U/L (12-78); Albumin Level 3.8 g/dl (3.5-5.0); Albumin/Globulin Ratio 1.2 (1.1-1.8); Alkaline Phosphatase 101 U/L (38-126); Anion Gap 10.7 mEq/L (5-15); Aspartate Amino Transferase 81 U/L (17-59); Bilirubin,Total 0.4 mg/dl (0.2-1.3); Blood Urea Nitrogen 22 mg/dl (9-20); Calcium 9.1 mg/dl (8.4-10.2); Carbon Dioxide 31 mmol/L (22.0-30.0); Chloride 100 mmol/L (98-107); Estimated Glomerular Filt Rate 41 ml/min (>60); GFR (African American) 49 ML/MIN (>60); Globulin 3.2 g/dL (1.3-3.2); Glucose 193 mg/dl (74-100); Potassium 4.7 mmoL/L (3.5-5.1); Sodium 137 mmol/L (136-145)
[2023-05-19 21:32] LABS: Hemoglobin A1C 8.2 % (4.0-6.0)
== END 2023-05-19 23:59 ==
LOC: LAB.DROPOF 19:12
PROVIDERS: PCP Internal Medicine; Visit Provider Internal Medicine
DX: E78.5 Hyperlipidemia, unspecified (principal); Z79.899 Other long term (current) drug therapy; R06.02 Shortness of breath; E11.9 Type 2 diabetes mellitus without complications; Z79.4 Long term (current) use of insulin
CPT/HCPCS: 80053; 80307; 83036; 87636

== ENCOUNTER 2023-10-02 11:47 | Outpatient (CLI) | payer MEDICARE, SELFPAY ==
[2023-10-02 18:19] LABS: Basophils # 0.1 K/mm3 (0-0.2); Eosinophils # 0.4 K/mm3 (0.0-0.4); Eosinophils % 3.9 % (0.1-12.0); Hematocrit 48.7 % (42.0-52.0); Lymphocytes # 2.8 K/mm3 (0.7-4.5); Lymphocytes % 25.4 % (10-50); Mean Corpuscular HGB Conc 32.9 g/dL (31.8-35.4); Mean Corpuscular Hemoglobin 29.5 pg (27.0-31.2); Mean Corpuscular Volume 89.9 fl (80-94); Mean Platelet Volume 8.6 fl (7.4-10.4); Monocytes # 0.8 K/mm3 (0.1-1.0); Monocytes % 6.9 % (1.7-9.3); Neutrophils # 6.8 K/mm3 (1.8-7.8); Neutrophils % 62.8 % (37.0-80.0); Platelet Count 198 K/mm3 (142-424); Red Blood Count 5.42 M/mm3 (4.60-6.20); Red Cell Distribution Width 15.1 % (11.5-17.5); White Blood Count 10.8 K/mm3 (4.8-10.8)
[2023-10-02 19:06] LABS: Hemoglobin A1C 8.1 % (4.0-6.0)
[2023-10-02 19:46] LABS: Alanine Aminotransferase 42 U/L (12-78); Albumin Level 4.2 g/dl (3.5-5.0); Albumin/Globulin Ratio 1.3 (1.1-1.8); Alkaline Phosphatase 132 U/L (38-126); Anion Gap 16.9 mEq/L (5-15); Aspartate Amino Transferase 46 U/L (17-59); Bilirubin,Total 0.5 mg/dl (0.2-1.3); Blood Urea Nitrogen 29 mg/dl (9-20); Calcium 10.4 mg/dl (8.4-10.2); Carbon Dioxide 28 mmol/L (22.0-30.0); Chloride 93 mmol/L (98-107); Chol/HDL Ratio 3.2 (1-3.5); Cholesterol 135 mg/dl (140-200); Estimated Glomerular Filt Rate 34 ml/min (>60); GFR (African American) 41 ML/MIN (>60); Globulin 3.3 g/dL (1.3-3.2); Glucose 164 mg/dl (74-100); HDL Cholesterol 42 mg/dl (40-60); Potassium 4.9 mmoL/L (3.5-5.1); Sodium 133 mmol/L (136-145); Total Protein,Serum 7.5 g/dl (6.3-8.2); Triglycerides 315 mg/dl (30-150); VLDL Cholesterol 63 mg/dL (0-40)
[2023-10-02 19:57] LABS: Direct LDL Cholesterol 59.38 mg/dL (100-129)
[2023-10-02 20:05] LABS: 25-OH Vitamin D, Total 60.4 ng/mL (30-100)
[2023-10-02 20:19] LABS: Prostate Specific Ag Screen 2.1 ng/ml (0.0-4.0); Thyroid Stimulating Hormone 0.57 uIU/mL (0.465-4.68)
== END 2023-10-02 23:59 | disposition home or self-care (01) ==
LOC: LAB.DROPOF 10-03 11:47
PROVIDERS: PCP Family Medicine; Visit Provider Family Medicine
DX: R94.39 Abnormal result of other cardiovascular function study (principal); E78.5 Hyperlipidemia, unspecified; Z12.5 Encounter for screening for malignant neoplasm of prostate; I10 Essential (primary) hypertension; E78.2 Mixed hyperlipidemia; E55.9 Vitamin D deficiency, unspecified; E13.9 Other specified diabetes mellitus without complications; Z79.4 Long term (current) use of insulin
CPT/HCPCS: 80053; 80061; 82306; 83036; 84443; 85025; G0103

== ENCOUNTER 2023-11-02 09:45 | Outpatient (CLI) | payer MEDICARE, SELFPAY ==
--- NOTE | 2023-11-02 09:58 | US_ITS ---
FINAL REPORT TECHNIQUE: Ultrasound images of the kidneys and bladder were obtained. CLINICAL HISTORY: N18.31 - Chronic kidney disease, stage 3a COMPARISON: None FINDINGS: The right kidney measures 10.3 cm in length. It is normal in echogenicity. There is no hydronephrosis. Multiple renal cysts are present. The left kidney measures 13.3 cm in length. It is normal in echogenicity. There is no hydronephrosis. Multiple renal cysts are present. The spleen is enlarged, measuring 15.7 cm in craniocaudal length. IMPRESSION: Multiple bilateral renal cysts are present. Splenomegaly. Reviewed, Interpreted and Dictated by Thad Johansen III, MD Transcribed by Marya Reilly Authenticated and [facility]
[2023-11-02 11:29] LABS: Alanine Aminotransferase 33 U/L (12-78); Albumin Level 3.7 g/dl (3.5-5.0); Albumin/Globulin Ratio 1.2 (1.1-1.8); Alkaline Phosphatase 128 U/L (38-126); Aspartate Amino Transferase 40 U/L (17-59); Bilirubin,Total 0.4 mg/dl (0.2-1.3); Blood Urea Nitrogen 40 mg/dl (9-20); Calcium 9.7 mg/dl (8.4-10.2); Carbon Dioxide 32 mmol/L (22.0-30.0); Chloride 94 mmol/L (98-107); Estimated Glomerular Filt Rate 29 ml/min (>60); GFR (African American) 35 ML/MIN (>60); Glucose 245 mg/dl (74-100); Sodium 134 mmol/L (136-145); Total Protein,Serum 6.7 g/dl (6.3-8.2)
== END 2023-11-02 23:59 | disposition home or self-care (01) ==
PROVIDERS: Nurse Practitioner; PCP Family Medicine; Visit Provider Family Medicine
DX: E11.22 Type 2 diabetes mellitus with diabetic chronic kidney disease (principal); N18.31 Chronic kidney disease, stage 3a; R94.39 Abnormal result of other cardiovascular function study; R06.00 Dyspnea, unspecified; R07.9 Chest pain, unspecified; E66.9 Obesity, unspecified; Z68.38 Body mass index [BMI] 38.0-38.9, adult; Z72.0 Tobacco use
CPT/HCPCS: 36415; 76770; 80053

== ENCOUNTER 2023-11-19 14:31 | Outpatient (CLI) | payer MEDICARE, SELFPAY ==
--- NOTE | 2023-11-19 14:32 | CT_ITS ---
FINAL REPORT TECHNIQUE: Thin section axial images were obtained from the lung bases to the pubic symphysis without IV contrast. Coronal reconstruction images were obtained from the axial data. Exam was performed using dose reduction technique. CLINICAL HISTORY: enlarged spleen COMPARISON: 11/02/2023 FINDINGS: There are no renal or ureteral stones. There is no hydronephrosis or perinephric stranding. There are bilateral hypo and hyperdense renal lesions some of which may be related to proteinaceous or hemorrhagic cysts. Solid lesion cannot be excluded on this exam. Liver is without acute abnormality. Spleen is mildly enlarged at 14 cm. Remaining unenhanced solid abdominal organs are without acute abnormality. GI tract is unremarkable. There is no evidence of small bowel obstruction. The appendix is normal. GI tract is without acute abnormality. Prostate is enlarged. There is mild urinary bladder wall thickening likely related to chronic outlet obstruction. There are enlarged bilateral inguinal lymph nodes, left greater than right with the largest on the left measuring 22 mm. There is no lymphadenopathy or ascites. No acute osseous abnormality is identified. IMPRESSION: Mild splenomegaly. Mild inguinal lymphadenopathy which may be reactive or less likely, neoplastic. Bilateral renal lesions which may be complex or simple cysts. Solid lesion not excluded on this exam. Reviewed, Interpreted and Dictated by Pia Finn MD Transcribed by Janna Herring Authenticated and [facility]
== END 2023-11-19 23:59 | disposition home or self-care (01) ==
LOC: RAD 14:32
PROVIDERS: PCP Family Medicine; Visit Provider Family Medicine
DX: R16.1 Splenomegaly, not elsewhere classified (principal)
CPT/HCPCS: 74176

== ENCOUNTER 2024-01-12 08:54 | Outpatient (CLI) | payer MEDICARE, SELFPAY ==
[2024-01-12 18:49] LABS: Basophils # 0.1 K/mm3 (0-0.2); Basophils % 0.6 % (0.1-2.0); Eosinophils # 0.3 K/mm3 (0.0-0.4); Hematocrit 48.4 % (42.0-52.0); Hemoglobin 15.3 g/dL (14.1-18.0); Lymphocytes # 2.5 K/mm3 (0.7-4.5); Lymphocytes % 26.4 % (10-50); Mean Corpuscular HGB Conc 31.6 g/dL (31.8-35.4); Mean Corpuscular Hemoglobin 29.2 pg (27.0-31.2); Mean Corpuscular Volume 92.4 fl (80-94); Mean Platelet Volume 9.8 fl (7.4-10.4); Monocytes # 0.7 K/mm3 (0.1-1.0); Monocytes % 7.1 % (1.7-9.3); Neutrophils # 5.9 K/mm3 (1.8-7.8); Platelet Count 182 K/mm3 (142-424); Red Blood Count 5.23 M/mm3 (4.60-6.20); Red Cell Distribution Width 15.9 % (11.5-17.5); White Blood Count 9.3 K/mm3 (4.8-10.8)
[2024-01-12 19:05] LABS: Alanine Aminotransferase 45 U/L (12-78); Albumin Level 3.7 g/dl (3.5-5.0); Albumin/Globulin Ratio 1.1 (1.1-1.8); Alkaline Phosphatase 91 U/L (38-126); Anion Gap 11.9 mEq/L (5-15); Aspartate Amino Transferase 74 U/L (17-59); Bilirubin,Total 0.5 mg/dl (0.2-1.3); Blood Urea Nitrogen 32 mg/dl (9-20); Calcium 9.2 mg/dl (8.4-10.2); Carbon Dioxide 29 mmol/L (22.0-30.0); Chloride 97 mmol/L (98-107); Estimated Glomerular Filt Rate 36 ml/min (>60); GFR (African American) 43 ML/MIN (>60); Globulin 3.3 g/dL (1.3-3.2); Glucose 276 mg/dl (74-100); Potassium 4.9 mmoL/L (3.5-5.1); Sodium 133 mmol/L (136-145)
[2024-01-12 19:42] LABS: Microalbumin/Creatinine Ratio 30.8
[2024-01-12 19:45] LABS: Creatinine,Urine Random 87 mg/dL (Not Estab.)
[2024-01-13 12:38] LABS: Hemoglobin A1C 8.7 % (4.0-6.0)
== END 2024-01-12 23:59 | disposition home or self-care (01) ==
LOC: LAB.DROPOF 01-14 08:55
PROVIDERS: PCP Family Medicine; Visit Provider Family Medicine
DX: R16.1 Splenomegaly, not elsewhere classified (principal); N18.31 Chronic kidney disease, stage 3a; Z00.00 Encounter for general adult medical examination without abnormal findings; E11.9 Type 2 diabetes mellitus without complications
CPT/HCPCS: 80053; 82043; 82570; 83036; 85025

== ENCOUNTER 2024-01-22 06:43 | Outpatient (CLI) | payer MEDICARE, SELFPAY ==
--- NOTE | 2024-01-22 06:49 | CT_ITS ---
FINAL REPORT TECHNIQUE: Axial images through the abdomen and pelvis were performed without contrast.This study was performed with techniques to keep radiation doses as low as reasonably achievable, (ALARA). Individualized dose reduction techniques using automated exposure control or adjustment of mA and/or kV according to the patient's size were employed. CLINICAL HISTORY: splenomegaly and inguinal adenopathy COMPARISON: 11/19/2023 FINDINGS: ABDOMEN: There is scarring at the left lung base. The heart size is normal. Limited images of the liver demonstrate diffuse fatty infiltration. Liver is enlarged up to 21 cm in craniocaudad dimension. Spleen is also enlarged measuring up to 14.5 cm. The spleen is normal. No adrenal mass is identified. The aorta is normal in caliber. There is no significant free fluid or adenopathy. There is no nephrolithiasis. There is no hydronephrosis. There are multiple exophytic bilateral renal cysts measuring up to 2.6 cm. Some of these appear to be simple cyst, others, with increased density may represent complex cyst. These are stable from prior exam. PELVIS: The appendix is not identified. The urinary bladder is incompletely distended. There are bilateral inguinal lymph nodes measuring up to 1.8 cm in the left inguinal region, improved from prior exam. IMPRESSION: Diffuse fatty infiltration of the liver with hepatosplenomegaly. Multiple bilateral renal cyst, stable. Mild bilateral inguinal adenopathy, improved. Reviewed, Interpreted and Dictated by Harris Webb MD Transcribed by Janna Herring Authenticated and . [facility]
== END 2024-01-22 23:59 | disposition home or self-care (01) ==
LOC: RAD 06:44
PROVIDERS: PCP Family Medicine; Visit Provider Family Medicine
DX: R16.1 Splenomegaly, not elsewhere classified (principal); R59.0 Localized enlarged lymph nodes
CPT/HCPCS: 74176

== ENCOUNTER 2024-04-14 07:35 | Outpatient (CLI) | payer MEDICARE, SELFPAY ==
[2024-04-14 07:43] LABS: Microscopic, Urine URINE MICROSCOPIC (MICROSCOPIC)
[2024-04-14 08:20] LABS: Appearance,Urine CLEAR (Clear); Bilirubin,Urine Negative (Negative); Blood, Urine Negative (Negative); Color,Urine YELLOW (Yellow); Glucose,Urine (UA) 2+ (Negative); Ketones,Urine Negative (Negative); Leukocyte Esterase,Urine Negative (Negative); Nitrate,Urine Negative (Negative); Protein,Urine Negative (Negative); Urobilinogen,Urine 0.2 EU/dl (0.2)
[2024-04-14 08:23] LABS: Hematocrit 47.5 % (42.0-52.0); Hemoglobin 15.7 g/dL (14.1-18.0); Mean Corpuscular Hemoglobin 30.2 pg (27.0-31.2); Mean Corpuscular Volume 91.3 fl (80-94); Platelet Count 214 K/mm3 (142-424); Red Cell Distribution Width 14.2 % (11.5-17.5); White Blood Count 9.6 K/mm3 (4.8-10.8)
[2024-04-14 08:26] LABS: Bacteria,Urine Trace /lpf; Squamous Epithelial Cell,Urine Occasional #/hpf (0-5); WBC,Urine Occasional #/hpf (0-3)
[2024-04-14 08:31] LABS: Creatinine,Urine Random 62 mg/dL (Not Estab.)
[2024-04-14 08:34] LABS: Microalbumin/Creatinine Ratio 21.1
[2024-04-14 10:00] LABS: Albumin Level 4.2 g/dl (3.5-5.0); Anion Gap 10.8 mEq/L (5-15); Blood Urea Nitrogen 33 mg/dl (9-20); Calcium 9.9 mg/dl (8.4-10.2); Carbon Dioxide 33 mmol/L (22.0-30.0); Chloride 95 mmol/L (98-107); Estimated Glomerular Filt Rate 38 ml/min (>60); GFR (African American) 46 ML/MIN (>60); Glucose 163 mg/dl (74-100); Phosphorous 3.3 mg/dl (2.5-4.5); Potassium 4.8 mmoL/L (3.5-5.1); Sodium 134 mmol/L (136-145)
[2024-04-14 10:18] LABS: 25-OH Vitamin D, Total 43.8 ng/mL (30-100)
[2024-04-19 12:27] LABS: Osmolality, Urine 324 mOsmol/kg (.)
== END 2024-04-14 23:59 | disposition home or self-care (01) ==
LOC: LAB 07:36
PROVIDERS: PCP Family Medicine; Visit Provider Student in an Organized Health Care Education/Training Program
DX: N18.32 Chronic kidney disease, stage 3b (principal); N17.9 Acute kidney failure, unspecified
CPT/HCPCS: 36415; 80069; 81001; 82043; 82306; 82570; 83935; 83970; 84156; 84540; 85027

== ENCOUNTER 2024-08-15 15:11 | Outpatient (CLI) | payer MEDICARE, SELFPAY ==
[2024-08-15 19:49] LABS: Albumin Level 4.4 g/dl (3.5-5.0); Chloride 96 mmol/L (98-107); Sodium 134 mmol/L (136-145)
[2024-08-15 19:52] LABS: Alanine Aminotransferase 44 U/L (12-78); Albumin/Globulin Ratio 1.3 (1.1-1.8); Aspartate Amino Transferase 53 U/L (17-59); Blood Urea Nitrogen 27 mg/dl (9-20); Carbon Dioxide 28 mmol/L (22.0-30.0); Estimated Glomerular Filt Rate 34 ml/min (>60); GFR (African American) 41 ML/MIN (>60); Globulin 3.3 g/dL (1.3-3.2); Total Protein,Serum 7.7 g/dl (6.3-8.2)
[2024-08-15 19:53] LABS: Alkaline Phosphatase 133 U/L (38-126); Bilirubin,Total 0.4 mg/dl (0.2-1.3); Calcium 9.8 mg/dl (8.4-10.2); Chol/HDL Ratio 3.2 (1-3.5); Cholesterol 139 mg/dl (140-200); Glucose 199 mg/dl (74-100); HDL Cholesterol 44 mg/dl (40-60); Triglycerides 307 mg/dl (30-150); VLDL Cholesterol 61 mg/dL (0-40)
[2024-08-15 20:04] LABS: Direct LDL Cholesterol 44.99 mg/dL (100-129)
[2024-08-15 20:16] LABS: Creatinine,Urine Random 44 mg/dL (Not Estab.); Microalbumin < 6.000 mg/L (0-16.7)
[2024-08-15 21:50] LABS: Hemoglobin A1C 7.7 % (4.0-6.0)
== END 2024-08-15 23:59 | disposition home or self-care (01) ==
LOC: LAB.DROPOF 08-16 14:26
PROVIDERS: PCP Family Medicine; Visit Provider Family Medicine
DX: E11.69 Type 2 diabetes mellitus with other specified complication (principal); E66.9 Obesity, unspecified; E78.2 Mixed hyperlipidemia
CPT/HCPCS: 80053; 80061; 82043; 82570; 83036

== ENCOUNTER 2024-08-24 09:06 | Outpatient (CLI) | payer MEDICARE, SELFPAY ==
--- NOTE | 2024-08-24 09:13 | XR_ITS ---
FINAL REPORT CLINICAL HISTORY: Chronic knee pain FINDINGS: AP, lateral and oblique views of the left knee were obtained. There is no prior exam for comparison. There is no acute fracture or dislocation. There is tricompartmental degenerative joint disease most pronounced in the medial compartment. There is no joint effusion or other acute soft tissue abnormality. IMPRESSION: Degenerative joint disease without acute osseous abnormality of the left knee. Reviewed, Interpreted and Dictated by Pia Finn MD Transcribed by Vidya Triplett Authenticated and [facility]
--- NOTE | 2024-08-24 09:13 | XR_ITS ---
FINAL REPORT CLINICAL HISTORY: Knee pain FINDINGS: AP, lateral and oblique views of the right knee were obtained. There is no prior exam for comparison. There is no acute fracture or dislocation. There is degenerative joint disease, which is less severe than on the contralateral knee. There are several calcified loose biopsies likely within the popliteal cyst. There is no joint effusion. IMPRESSION: No acute osseous abnormality of the right knee. Degenerative joint disease. Reviewed, Interpreted and Dictated by Pia Finn MD Transcribed by Vidya Triplett Authenticated and [facility]
== END 2024-08-24 23:59 | disposition home or self-care (01) ==
LOC: RAD 09:07
PROVIDERS: PCP Family Medicine; Visit Provider Family Medicine
DX: M25.561 Pain in right knee (principal); M25.562 Pain in left knee; G89.29 Other chronic pain
CPT/HCPCS: 73562

== ENCOUNTER 2024-08-31 12:46 | Outpatient (CLI) | payer MEDICARE, SELFPAY ==
--- NOTE | 2024-08-31 13:00 | CT_ITS ---
FINAL REPORT TECHNIQUE: Thin section axial images were obtained from the lung apices to the upper abdomen by computed tomography. Reformatted images were obtained and reviewed. This study was performed with techniques to keep radiation doses al low as reasonably achievable (ALARA). Individualized dose reduction techniques using automated exposure control or adjustment of mA and/or kV according to the patient's size were employed. CLINICAL HISTORY: lung cancer screening. SMOKER. 2PPD FOR 40 YEARS COMPARISON: 04/12/2021 FINDINGS: CHEST CT LOW DOSE 64-year-old male, current smoker, 19-olnb-wvzk history. CTDI vol (mGy): 2.90 DLP (mGy-cm): 123.24 There is no axillary adenopathy. There is no mediastinal or hilar mass or adenopathy. A few small scattered calcified mediastinal nodes are present. The heart is normal in size. There is no pericardial or pleural effusion. There is mild pulmonary scarring predominantly in the lung bases. Lung window images demonstrate no suspicious infiltrate or nodule. Limited images of the upper abdomen demonstrate fatty infiltration of the liver.. IMPRESSION: Lung-RADS category 1. Recommend 12 month follow up low dose chest CT. Reviewed, Interpreted and Dictated by Harris Webb MD Transcribed by Marya Reilly Authenticated and [facility]
== END 2024-08-31 23:59 | disposition home or self-care (01) ==
LOC: RAD 12:47
PROVIDERS: PCP Family Medicine; Visit Provider Family Medicine
DX: F17.210 Nicotine dependence, cigarettes, uncomplicated (principal)
CPT/HCPCS: 71271

== ENCOUNTER 2024-10-14 12:30 | Outpatient (CLI) | payer MEDICARE, SELFPAY ==
[2024-10-14 18:49] LABS: Anion Gap 10.3 mEq/L (5-15); Blood Urea Nitrogen 33 mg/dl (9-20); Carbon Dioxide 33 mmol/L (22.0-30.0); Chloride 95 mmol/L (98-107); Estimated Glomerular Filt Rate 30 ml/min (>60); GFR (African American) 36 ML/MIN (>60); Glucose 143 mg/dl (74-100); Potassium 5.3 mmoL/L (3.5-5.1); Sodium 133 mmol/L (136-145)
[2024-10-14 19:20] LABS: Prostate Specific Ag Screen 2.3 ng/ml (0.0-4.0)
--- OUTSIDE RECORDS SUMMARY | 2024-10-14 22:49 | XMS_ITS ---
Author Organization Unknown Plan of Treatment Description Planned Activity Planned Timing - Telephone encounter Jul 03, 2023 Patient Care team information Name Category Status Period Participants - - Proposed period not known -
--- OUTSIDE RECORDS SUMMARY | 2024-10-14 22:49 | XMS_ITS | Clinical Summary ---
Author Organization [facility] Address [address] [place] [address] Care Team Providers Care Welding Machine Operator Plasma Arc Name Role Phone Chet Khan MD Primary Care Provider + [phone] Allergies Active Allergy Reactions Criticality Noted Date Comments Niacin Other - please docum ent in the comment field Medium 07/08/2013 Medications apixaban (Eliquis) 5 MG tablet Take 1 tablet (5 mg) by mouth 2 (two) times a day. Active bumetanide (Bumex) 1 MG tablet Take by mouth 1 (one) time each day. Active cyclobenzaprin e (Flexeril) 10 MG tablet Take 1 tablet (10 mg) by mouth 3 (three) times a day if needed. Active HYDROcodone-ac etaminophen ([place]) 5-325 MG tablet Active insulin glargine (Lantus SoloStar, Basaglar) 100 UNIT/ML injection pen Inject under the skin every night. Active insulin NPH-insulin regular (70-30) 100 UNIT/ML injection vial Inject under the skin 2 (two) times a day before meals. Active lansoprazole (Prevacid) [address] capsule Take 1 capsule (30 mg) by mouth 1 (one) time each day before breakfast. Do not crush or chew. Active lovastatin (Mevacor) 20 MG tablet Take 1 tablet (20 mg) by mouth every night. Active pregabalin (Lyrica) 150 MG capsule Take 1 capsule (150 mg) by mouth 2 (two) times a day. Active tamsulosin (Flomax) 0.4 MG 24 hr capsule Take 1 capsule (0.4 mg) by mouth 1 (one) time each day. Active Icosapent Ethyl (VASCEPA PO) Take by mouth. Activ e psyllium (Metamucil) 28 % packet Take 1 packet by mouth 2 (two) times a day. Mix and drink with at least 8 ounces of water or juice. Active fenofibrate micronized (Lofibra) 134 MG capsule Take 1 capsule (134 mg) by mouth 1 (one) time each day with breakfast. Active albuterol 108 (90 Base) MCG/ACT inhaler INHALE 2 PUFFS BY MOUTH EVERY 6 HOURS NEEDED FOR SHORTNESS OF BREATH OR WHEEZING 3 Active cetirizine (ZyrTEC) 10 MG tablet TAKE 1 TABLET BY MOUTH ONCE DAILY NEEDED FOR ALLERGIES Active Continuous Blood Gluc Sensor (FreeStyle Gabe 2 Sensor) misc USE DIRECTED OR TWICE DAILY 3 Active fluticasone (Flonase) 50 MCG/ACT nasal spray USE 1 SPRAY(S) IN EACH NOSTRIL ONCE DAILY 3 Active RELION INSULIN SYRINGE 1ML/31G 31G X /16 1 ML misc USE DIRECTED 3 Active Ozempic, 2 MG/DOSE, 8 MG/3ML solution pen-injector INJECT 2MG SUBCUTANEOUSLY ONCE A WEEK, START THE WEEK FOLLOWING YOUR LAST TRULICITY DOSE 4 Active Vascepa 1 g capsule Take 2 capsules (2 g) by mouth 2 (two) times a day. 4 Active Trelegy Ellipta 200-62.5-25 MCG/ACT aerosol powder Inhale 1 puff. 4 Active Active Problems Problem Noted Date Diagnosed Date Obesity (BMI 35.0-39.9 without comorbidity) 04/04 Anemia due to stage 3b chronic kidney disease Type 2 diabetes mellitus wit h stage 3b chronic kidney disease 01/08/2024 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-MBD) 01/08/2024 Hypervolemia associated with renal insufficiency 01/08/2024 Hypertensive chronic kidney disease with stage 1 through stage 4 chronic kidney disease, or unspecified chronic kidney disease 01/08/2024 Social History Tobacco Use Types Packs/Day Years Used Date Smoking Tobacco: Every Day Cigarettes Passive Smoke Exposure: Past Smokeless Tobacco: Former Tobacco Cessation:Ready to Q uit: Not Asked; Counseling Given: Not Answered Alcohol Use Standard Drinks/Week Comments Yes 6 (1 standard drink = 0.6 oz pur e alcohol) Sex and Gender Information Value Date Recorded Sex Assigned at Not on file Legal Sex Male 6:11 PM EDT Gender Identity Not on file Sexual Orientation Not on file Last Filed Vital Signs Vital Sign Reading Time Taken Comments Blood Pressure 110/70 04/22/2024 1:19 PM EST Pulse 68 04/22/2024 1:19 PM EST Temperature 36.6 C (97.8 F) 04/22/2024 1:19 PM EST Respiratory Rate 18 04/22/2024 1:19 PM EST Oxygen Saturation 90% 04/22/2024 1:19 PM EST Inhaled Oxygen Concentration - - Weight 133 kg (293 lb) 04/22/2024 1:19 PM EST Height 188 cm (6' 2 ) 04/22/2024 1:19 PM EST Body Mass Index 37.62 04/22/2024 1:19 PM EST Plan of Treatment Health Maintenance Due Date Last Done Comments [facility]Depression Screening 1958 [facility]-Diabetes: Hemoglobin A1C 1958 [facility]-Hepatitis C Screening 1958 [facility]-Medicare Annual Wellness (AWV) 1958 [facility]-/Child/Adol SDOH Screenings 1958 Diabetes: Dental Exam 1968 [facility]- SDOH Screenings 1976 [facility]-Adult SDOH Screenings 1976 [facility]-DTaP,Tdap,and Td Vaccines (1 - Tdap) 1977 CT Colonography 2003 Colonoscopy 2003 FIT-DNA 2003 FIT 2003 FOBT 2003 Sigmoidoscopy 2003 [facility]-Colorectal Cancer Screening 2003 [facility]-Zoster Vaccines (1 of 2) 2008 [facility]-RSV Vaccine: 60+ Years or (1 - Risk 60-74 years 1-dose series) 2018 [facility]-Abdominal Aortic Aneurysm (AAA) Screening 2023 [id number] Vaccine ( - season) 2024 11/23/2020, 10/26/2020 [facility]-Influenza Vaccine (Season Ended) 2025 [facility]-Pneumococcal Vaccine: 50+ Years Completed 03/14/2024 [facility]-Obesity Intervention Completed 024, 01/08/2024, 11/09/2023, Additional history exists HPV Vaccines Aged Out No longer eligi ble based on patient's age to complete this topic [facility]-HIB Vaccines Aged Out No longer e ligible based on patient's age to complete this topic [facility]-Hepatitis A Vaccines Aged Out No longer eligible based on patient's age to complete this topic [facility]-IPV Vaccines Aged Out No longer e ligible based on patient's age to complete this topic [facility]-Rotavirus Vaccines Aged Out No lo nger eligible based on patient's age to complete this topic Insurance MEDICARE Care Teams Welding Machine Operator Plasma Arc Relationship Specialty Start Date End Date Chet Khan MD [address] [place] [id number] PCP - General 10/28/21
--- OUTSIDE RECORDS SUMMARY | 2024-10-14 22:49 | XMS_ITS | Clinical Summary ---
Author Organization [facility] Address [address] [place] [address] Phone Care Team Providers Care Land Agent Name Role Phone Odalys Burton Unavailable Conditions or Problems Problem Name Problem Code Onset Date Status Entry Date Provider Comment Standard Description Annotate PSA B96.89 (ICD-10-CM) 07/18 Active 07/18 Marni Yañez Other specified bacterial agents as the cause of diseases classified elsewhere MRSA 327282918 (SNOMED CT) 07/18 Active 07/18 Marni Yañez Methicillin resistant Staphylococcus aureus infection Obesity, unspecified 810401500 (SNOMED CT) 07/13 Active 07/13 Angeli Z Obesity Otitis externa 3895067 (SNOMED CT) 07/11 Active 07/11 Mercy Nordan Otitis externa Tobacco abuse 83753567 (SNOMED CT) 07/11 Active 07/11 Mercy Mora Tobacco dependence syndrome Diabetes mellitus, type II, poorly controlled E11.65 (ICD-10-CM) 07/11 Active 07/11 Mercy Mora Type 2 diabetes mellitus with hyperglycemia Medications Medication Instructions Start Date Stop Date Generic Name [facility] Provider FLUCONAZOLE 200 MG TABS one by mouth daily x 7 days 07/14 FLUCONAZOLE [id number] Thad Herrera MD BACTRIM DS 800-160 MG TABS 1 by mouth twice a day 07/20 SULFAMETHOXAZOLE- TRIMETHOPRIM [id number] Thad Herrera MD CIPRO 500 MG TABS 1 by mouth twice a day 07/20 CIPROFLOXACIN HCL 68904075832 Thad Herrera MD METFORMIN HCL 1000 MG TABS METFORMIN HCL 19056701764 Bev Mays GABAPENTIN 300 MG CAPS GABAPENTIN 49636171926 Bev Mays CYCLOBENZAPRINE HCL 5 MG TABS CYCLOBENZAPRINE HCL [id number] Bev Mays WARFARIN SODIUM 5 MG TABS WARFARIN SODIUM 66133507417 Bev Mays METOPROLOL SUCCINATE ER 25 MG [id number] METOPROLOL SUCCINATE 74591601055 Bev Mays LEVOFLOXACIN 750 MG TABS LEVOFLOXACIN [id number] Bev Mays DIGOXIN 250 MCG TABS DIGOXIN [id number] Bev Mays Medications Administered No information available. Allergies, Adverse Reactions, Alerts Allergy Name Reaction Description Start Date Severity Statu s Provider NIACIN Moderate Active Bev cohen Results Date Name Value Unit Range Flag Description Clinical Lists Update: Prelo ad CIGARET SMKG yes Tobacco smoking status SMOK STATUS current every day smoker Tobacco smoking status Office Visit: 9 MEDS REVIEW Done Documenta tion of current medications (procedure) Lab Report: Culture Fungus CULTURE Specimen/Source: Drainage/EAR SWAB culture, comment Plan of Care Type Date Detail Pending order Fungal Culture & Sensitivity Procedures Code Procedure Name Date Entry Date CPT-cf Fungal Culture & Sensitivity Vital Signs Date Name Value Unit Description BMI (Body Mass Index) 35.51 kg/m2 Bod y Mass Index (Ratio) Body Temperature 98.1 [degF] temperat ure E&M BP Diastolic 68 mm[Hg] blood pressu re, diastolic BP Systolic 110 mm[Hg] blood pressur e, systolic Heart Rate 68 /min pulse rate Height 73 [in_us] height E&M Respiratory Rate 12 /min respirat ory rate E&M Weight Measured 268.2 [lb_av] weight E& M Weight Measured 268.2 [lb_av] weight E& M Immunizations No information available. Advance Directives No information available.
== END 2024-10-14 23:59 | disposition home or self-care (01) ==
LOC: LAB.DROPOF 22:48
PROVIDERS: PCP Family Medicine; Visit Provider Family Medicine
DX: Z12.5 Encounter for screening for malignant neoplasm of prostate (principal); R60.0 Localized edema
CPT/HCPCS: 80048; G0103

== ENCOUNTER 2024-11-14 14:08 | Outpatient (CLI) | payer MEDICARE, SELFPAY ==
[2024-11-14 19:32] LABS: Albumin Level 4.2 g/dl (3.5-5.0); Chloride 91 mmol/L (98-107); Potassium 5.9 mmoL/L (3.5-5.1); Sodium 132 mmol/L (136-145)
[2024-11-14 19:35] LABS: Alanine Aminotransferase 42 U/L (12-78); Albumin/Globulin Ratio 1.3 (1.1-1.8); Alkaline Phosphatase 118 U/L (38-126); Anion Gap 16.9 mEq/L (5-15); Aspartate Amino Transferase 53 U/L (17-59); Bilirubin,Total 0.5 mg/dl (0.2-1.3); Blood Urea Nitrogen 37 mg/dl (9-20); Carbon Dioxide 30 mmol/L (22.0-30.0); Cholesterol 132 mg/dl (140-200); Creatinine,Serum 1.80 mg/dl (0.66-1.25); Estimated Glomerular Filt Rate 38 ml/min (>60); GFR (African American) 46 ML/MIN (>60); Globulin 3.2 g/dL (1.3-3.2); Total Protein,Serum 7.4 g/dl (6.3-8.2)
[2024-11-14 19:36] LABS: Calcium 9.6 mg/dl (8.4-10.2); Glucose 217 mg/dl (74-100); HDL Cholesterol 32 mg/dl (40-60); Triglycerides 504 mg/dl (30-150)
[2024-11-15 00:01] LABS: Hemoglobin A1C 9.3 % (4.0-6.0)
--- OUTSIDE RECORDS SUMMARY | 2024-11-15 09:51 | XMS_ITS | Clinical Summary ---
Author Organization [facility] Address [address] [place] [address] Phone Care Team Providers Care Inspector And Hand Packager Name Role Phone Odalys Burton Unavailable Conditions or Problems Problem Name Problem Code Onset Date Status Entry Date Provider Comment Standard Description Annotate PSA B96.89 (ICD-10-CM) 07/18 Active 07/18 Marni Yañez Other specified bacterial agents as the cause of diseases classified elsewhere MRSA 399958638 (SNOMED CT) 07/18 Active 07/18 Marni Yañez Methicillin resistant Staphylococcus aureus infection Obesity, unspecified 905787192 (SNOMED CT) 07/13 Active 07/13 Angeli Z Obesity Otitis externa 4951373 (SNOMED CT) 07/11 Active 07/11 Mer[facility] Nordan Otitis externa Tobacco abuse 99496816 (SNOMED CT) 07/11 Active 07/11 Mercy Mora Tobacco dependence syndrome Diabetes mellitus, type II, poorly controlled E11.65 (ICD-10-CM) 07/11 Active 07/11 Mercy Mora Type 2 diabetes mellitus with hyperglycemia Medications Medication Instructions Start Date Stop Date Generic Name [facility] Provider FLUCONAZOLE 200 MG TABS one by mouth daily x 7 days 07/14 FLUCONAZOLE [id number] Thad Herrera MD BACTRIM DS 800-160 MG TABS 1 by mouth twice a day 07/20 SULFAMETHOXAZOLE- TRIMETHOPRIM 88442920025 Thad Herrera MD CIPRO 500 MG TABS 1 by mouth twice a day 07/20 CIPROFLOXACIN HCL 99467867026 Thad Herrera MD METFORMIN HCL 1000 MG TABS METFORMIN HCL 11489404158 Bev Mays GABAPENTIN 300 MG CAPS GABAPENTIN 62578071917 Bev Mays CYCLOBENZAPRINE HCL 5 MG TABS CYCLOBENZAPRINE HCL 57109520364 Bev Mays WARFARIN SODIUM 5 MG TABS WARFARIN SODIUM 75320168035 Bev Mays METOPROLOL SUCCINATE ER 25 MG [id number] METOPROLOL SUCCINATE 67098609657 Bev Mays LEVOFLOXACIN 750 MG TABS LEVOFLOXACIN 88880113159 Bev Mays DIGOXIN 250 MCG TABS DIGOXIN [id number] Bev Mays Medications Administered No information available. [...]
--- OUTSIDE RECORDS SUMMARY | 2024-11-15 09:52 | XMS_ITS | Clinical Summary ---
Author Organization [facility] Address [address] [place] [address] Care Team Providers Care Scale Operator Name Role Phone Chet Khan MD Primary Care Provider + [phone] Allergies Active Allergy Reactions Criticality Noted Date [...] a day if needed. Active HYDROcodone-ac etaminophen ([place]) 5-325 MG tablet Active insulin glargine (Lantus [...] 04/22/2024 1:19 PM EST Plan of Treatment Upcoming Encounters Date Type Department Care Team (Late st Contact Info) Description 02/17/2025 9:20 AM EDT Office Visit [facility] [address] [place] [address] Nam Thompson MD [address] [place] [phone] Health Maintenance Due Date Last Done Comments [facility]-Depression Screening 1960 [facility]-Diabetes: Hemoglobin A1C 1958 [facility]-Hepatitis C Screening 1958 [facility]-Medicare Annual Wellness (AWV) 1958 [facility]-/Child/Adol SDOH Screenings 1958 Diabetes: Dental Exam 1968 [facility]- SDOH Screenings 1976 [facility]-Adult SDOH Screenings 1976 [facility]-DTaP,Tdap,and Td Vaccines (1 - Tdap) 1977 CT Colonography 2003 Colonoscopy 2003 FIT-DNA 2003 FIT 2003 FOBT 2003 Sigmoidoscopy 2003 [facility]-Colorectal Cancer Screening 2003 [facility]-Zoster Vaccines (1 of 2) 2008 [facility]-RSV Vaccine: 60+ Years or (1 - Risk 60-74 years 1-dose series) 2018 [facility]-Abdominal Aortic Aneurysm (AAA) Screening 2023 [id number] Vaccine (3 - season) 2024 11/23/2020, 10/26/2020 [facility]-Influenza Vaccine (#1) 2025 [facility]-Pneumococcal Vaccine: 50+ Years Completed 03/14/2024 [...] patient's age to complete this topic [place] [address] [place] [address] MEDICARE [facility] MEDICARE Care Teams Scale Operator Relationship Specialty Start Date End Date Chet Khan MD [address] [place] [address] PCP - General 10/28/21
== END 2024-11-14 23:59 | disposition home or self-care (01) ==
LOC: LAB.DROPOF 11-15 09:50
PROVIDERS: PCP Family Medicine; Visit Provider Family Medicine
DX: E11.69 Type 2 diabetes mellitus with other specified complication (principal); E66.9 Obesity, unspecified
CPT/HCPCS: 80053; 80061; 83036

== ENCOUNTER 2024-11-17 14:46 | Outpatient (CLI) | payer MEDICARE, SELFPAY ==
--- OUTSIDE RECORDS SUMMARY | 2024-11-17 15:15 | XMS_ITS | Clinical Summary ---
Author Organization [facility] Address [address] [place] [address] Phone Care Team Providers Care Beer Still Runner Compounder Name Role Phone Odalys Burton Unavailable Conditions or Problems Problem Name Problem Code Onset Date Status Entry Date Provider Comment Standard Description Annotate PSA B96.89 (ICD-10-CM) 07/18 Active 07/18 Marni Yañez Other specified bacterial agents as the cause of diseases classified elsewhere MRSA 040457193 (SNOMED CT) 07/18 Active 07/18 Marni Yañez Methicillin resistant Staphylococcus aureus infection Obesity, unspecified 993238972 (SNOMED CT) 07/13 Active 07/13 Angeli Z Obesity Otitis externa 6007413 (SNOMED CT) 07/11 Active 07/11 Mercy Nordan Otitis externa Tobacco abuse 76642624 (SNOMED CT) 07/11 Active 07/11 Mercy Mora Tobacco dependence syndrome Diabetes mellitus, type II, poorly controlled E11.65 (ICD-10-CM) 07/11 Active 07/11 Mercy Mora Type 2 diabetes mellitus with hyperglycemia Medications Medication Instructions Start Date Stop Date Generic Name [facility] Provider FLUCONAZOLE 200 MG TABS one by mouth daily x 7 days 07/14 FLUCONAZOLE [id number] Thad Herrera MD BACTRIM DS 800-160 MG TABS 1 by mouth twice a day 07/20 SULFAMETHOXAZOLE- TRIMETHOPRIM 10748831247 Thad Herrera MD CIPRO 500 MG TABS 1 by mouth twice a day 07/20 CIPROFLOXACIN HCL 04564047494 Thad Herrera MD METFORMIN HCL 1000 MG TABS METFORMIN HCL 37547304935 Bev Mays GABAPENTIN 300 MG CAPS GABAPENTIN 19327760924 Bev Mays CYCLOBENZAPRINE HCL 5 MG TABS CYCLOBENZAPRINE HCL 23737231697 Bev Mays WARFARIN SODIUM 5 MG TABS WARFARIN SODIUM 45698259054 Bev Mays METOPROLOL SUCCINATE ER 25 MG [id number] METOPROLOL SUCCINATE 47750852758 Bev Mays LEVOFLOXACIN 750 MG TABS LEVOFLOXACIN 78476532164 Bev Mays DIGOXIN 250 MCG TABS DIGOXIN 28729021722 Bev Mays Medications Administered No information available. [...]
--- OUTSIDE RECORDS SUMMARY | 2024-11-17 15:16 | XMS_ITS | Clinical Summary ---
Author Organization [facility] Address [address] [place] [address] Care Team Providers Care Assisted Living Associate Name Role Phone Chet Khan MD Primary Care Provider + [phone] Allergies Active Allergy Reactions Criticality Noted Date [...] a day if needed. Active HYDROcodone-ac etaminophen ([place]) 5-325 MG tablet Active insulin glargine (Lantus [...] Description 02/17/2025 9:20 AM EDT Office Visit [facility] [address] [place] [address] Nam Thompson MD [address] [place] [phone] Health Maintenance Due Date Last Done Comments [facility]-Depression Screening 1960 [facility]-Diabetes: Hemoglobin A1C 1958 [facility]-Hepatitis C Screening 1958 [facility]-Medicare Annual Wellness (AWV) 1958 [facility]-/Child/Adol SDOH Screenings [...] 2018 [facility]-Abdominal Aortic Aneurysm (AAA) Screening 2023 [id number] Vaccine (3 - season) 2024 11/23/2020, 10/26/2020 [...] patient's age to complete this topic [place] [address] [place] [address] [facility]ARE [facility] MEDICARE Care Teams Assisted Living Associate Relationship Specialty Start Date End Date Chet Khan MD [address] [place] [address] PCP - General 10/28/21
[2024-11-17 15:30] LABS: Chloride 94 mmol/L (98-107); Potassium 5.0 mmoL/L (3.5-5.1); Sodium 135 mmol/L (136-145)
[2024-11-17 15:33] LABS: Anion Gap 13.0 mEq/L (5-15); Blood Urea Nitrogen 35 mg/dl (9-20); Calcium 10.1 mg/dl (8.4-10.2); Carbon Dioxide 33 mmol/L (22.0-30.0); Creatinine,Serum 1.80 mg/dl (0.66-1.25); Estimated Glomerular Filt Rate 38 ml/min (>60); GFR (African American) 46 ML/MIN (>60); Glucose 132 mg/dl (74-100)
== END 2024-11-17 23:59 | disposition home or self-care (01) ==
LOC: LAB.DROPOF 14:46
PROVIDERS: PCP Family Medicine; Visit Provider Family Medicine
DX: E87.5 Hyperkalemia (principal)
CPT/HCPCS: 80048

== ENCOUNTER 2024-12-19 09:41 | Outpatient (RCR) | payer MEDICARE, MEDICAID, SELFPAY ==
--- NOTE | 2024-12-19 11:00 | HMH.OPLYMPH ---
Rehab Inpt Wound Evaluation Rehab OP Lymphedema Evaluation Start: 12/19/24 10:40 Freq: Status: Active Protocol: Document 12/19/24 10:40 NIKA (Rec: 12/19/24 11:00 PHOEMETERIO [id number]) E-signed By Jaswant Villarreal, PT Subjective/History History History This is the initial PT Lymphedema and wound care eval for Andry Qureshi, 64 yowm who presents with c/o B LE increased edema, worse on the L side, x ~ 6 yrs overall , but worse for several months. He reports, I got a spider bite on the back of my leg and that's what started all of this. He has an area of scar tissue on the posterior L calf that corresponds with his previous injury. He reports his legs swell with prolonged dependent positioning, but he states, I can't just lay around the house all the time. He does have compression stockings, but he feels they cause increased discomfort and increased swelling above the level of the stockings. He has PMH of DM, CAD, HTN, COPD, he is a smoker, MELANY, and CKD. Subjective Subjective Pt presents with 5/10 pain in the L LE this date. 1/4 TTP to L lower leg. 2+ pitting edema to L lower leg, MODERATE erythema to L LE with hemosiderin staining. LLIS score: 59 Pt continues to have persistent lymphedema despite conservative treatment consisting of greater than 4 weeks of consistent elevation of B LE, compression garment wear throughout the day, and therapeutic exercise to improve fluid mobilization. Skin changes including frequent wounds, increased redness, and increased dryness of the skin remain evident. Lymphedema Eval Classification of Lymphedema Secondary Lymphedema Yes Stemmer's sign Stemmer's Sign yes Stage of Lymphedema Lymphedema stages Stage II (Pitting edema, increased fibrosis w/ decreased pitting) Skin Changes Dry Skin Yes Taut, Shiny Skin Yes Hyperkeratosis Yes Redness Yes Blisters Yes Wounds Yes Discoloration of Yes Skin Other Changes Yes Pain Scale Pain Scale (0-10) 5 Affected Extremities Areas Affected by Right Lower Extremity,Left Lower Extremity Lymphedema/Edema Lower Extremity Measurements Left MTP Measurement (cm) 25.5 Heel Measurement (cm 36.8 ) 10 cm Proximal to 29.9 Lateral Malleoli Measurement (cm) 20 cm Proximal to 42.6 Lateral Malleoli Measurement (cm) 30 cm Proximal to 48.4 Lateral Malleoli Measurement (cm) 40 cm Proximal to 0 Lateral Malleoli Measurement (cm) 50 cm Proximal to 0 Lateral Malleoli Measurement (cm) 60 cm Proximal to 0 Lateral Malleoli Measurement (cm) Lower Extremity 183.2 Measurement Total ( cm) Manual Lymphatic Drainage Treatment Area MLD Treatment Area Right Lower Extremity,Left Lower Extremity Wound Eval Wound Left Anterior Young Wound Type Stasis Ulcer Is This a Chronic Yes Wound Wound Length (cm) 1.9 Wound Width (cm) 1.5 Wound Depth (cm) 0.1 Wound Margins Well Defined Description Surrounding Tissue Bright Red Appearance Edema Type Pitting Edema Degree 2+ Query Text:1+ Trace, Barely Detectable, Rebound 15-30 seconds 2+ Moderate, Slight Indentation, Rebound 10-20 seconds 3+ Deep, Deeper Indentation, Rebound > 30 seconds 4+ Very Deep, Rebound > 60 seconds Drainage Description Serous Primary Dressing Composite Wound Problems/Impairments Impairments Problems/ Palpation Tenderness,Impaired Endurance,Impaired Shower Impairmments /Bathing,Impaired Household Care,Increased Edema, Lymphedema Present,Wound Care Needs,Subjective C/O Pain ,Impaired Self Care/Self Management Prognosis Rehab Potential Good Comment Skilled therapy is indicated to reduce overall wound surface area and reduce overall edema in order to aid pt improvement in QOL. Clinical Impression Consistent with Yes Diagnosis Lymphedema Patient Goals Lymphedema Patient Goals Lymphedema Short in 2 wks pt will: Term Patient Goals 1) Reduce pitting edema to 1+ in L LE 2) Reduce circumferential measurements to L LE by 5 cm 3) Reduce wound surface area on L LE by 25% 4) Reduce L LE pain to 3/10 Lymphedema Detention in 4 wks pt will: Patient Goals 1) Reduce pitting edema to 0 in L LE 2) Reduce circumferential measurements to L LE by 15 cm 3) Be independent with donning/doffing of compression garments 4) be independent with Lymphedema management via HEP 5) Reduce wound surface area on L LE by 75% 6) Reduce L LE pain to 1/10 Outpatient Therapy Plan of Care Treatment Plan May Include Therapeutic Exercise Yes Including Home Exercise Program Manual Therapy Yes Techniques Neuromuscular Re- Yes education Therapeutic Yes Activities to Return to Previous Functional/Work Level ADL/Self Care Yes Education Orthotics/Bracing/ Yes Splinting Vasopneumatic Yes Compression Pump Manual Lymphatic Yes Drainage Wound Care Yes Eval/Re-Eval Yes Frequency Times per week 2 Duration Number of Weeks 4 Addendums This patient is a No candidate for social or vocational rehab ? Patient/Guardian Yes verbally acknowledges understanding of treatment program and consents to further treatment? Patient/Guardian Yes verbally acknowledges understanding of diagnosis, prognosis and goals for treatment? Eval Complexity PT Charges 20602 - High Complexity PHYSICIAN CERTIFICATION: I certify the specified therapy services for Andry Qureshi are required, authorized, and reviewed every 30 days.
== END 2024-12-19 23:59 | disposition home or self-care (01) ==
LOC: PT 09:41
PROVIDERS: PCP Family Medicine; Visit Provider Family Medicine
DX: I87.2 Venous insufficiency (chronic) (peripheral) (principal)
CPT/HCPCS: 97163

== ENCOUNTER 2025-01-17 13:00 | Outpatient (RCR) | payer MEDICARE, MEDICAID, SELFPAY ==
--- NOTE | 2025-01-17 13:52 | HMH.RHREAS ---
Rehab Reassessment Rehab OP Re-assessment Start: 01/03/25 15:46 Freq: Status: Active Protocol: Document 01/17/25 13:45 PHOEMETERIO (Rec: 01/17/25 13:52 PHORNE [id number]) E-signed By Jaswant Villarreal, PT Rehab Re-assessment Subjective Subjective Pt reports no c/o pain at this time in either leg, but he does have tenderness on medial side of B lower legs this date. He reports he is wearing his compression garments as tolerated and feels much better with his edema overall. Objective Objective Notes Circumferential measurements: L LE total is 170.5 cm which is -12.7 cm since IE. Edema: 1+ pitting to B lower legs. Erythema: MILD erythema to B lower legs, but continued significant hemosiderin staining noted. Pain: 0/10 B lower legs Assessment Progress Assessment Progressing as Expected Assessment Notes Pt has shown significant improvement in overall edema based on circumferential measurements. Skilled therapy services remain indicated in order to continue reduction of B LE edema in order to aid pt improvement in QOL. Lymphedema Patient Goals Lymphedema Short in 2 wks pt will: Term Patient Goals 1) Reduce pitting edema to none in L LE 2) Reduce circumferential measurements to L LE by 15 cm Lymphedema Poising Inspector in 4 wks pt will: Patient Goals 1) Reduce any fibrotic edema in B LE to none 2) Reduce circumferential measurements to L LE by 20 cm Plan Plan Updated POC sent to provider for their continued input and approval. Continued pt treatment may include any or all of the following interventions in order to improve functional outcomes and aid pt improvement in QOL: Frequency of Therapy 1 x/wk Duration of Therapy 4 wks Therapeutic Exercise Yes Including Home Exercise Program Manual Therapy Yes Techniques Neuromuscular Re- Yes education Therapeutic Yes Activities to Return to Previous Functional/Work Level ADL/Self Care Yes Education Orthotics/Bracing/ Yes Splinting Manual Lymphatic Yes Drainage Eval/Re-Eval Yes Time and Billing Re-Eval Time 14 Re-Eval Billing 0 Units Charge for PT No reassessment? PHYSICIAN CERTIFICATION: I certify the specified therapy services for Andry Qureshi are required, authorized, and reviewed every 30 days.
== END 2025-01-17 23:59 | disposition home or self-care (01) ==
LOC: PT 13:00
PROVIDERS: PCP Family Medicine; Visit Provider Family Medicine
DX: I87.2 Venous insufficiency (chronic) (peripheral) (principal); I89.0 Lymphedema, not elsewhere classified
CPT/HCPCS: 97140

== ENCOUNTER 2025-03-06 09:56 | Outpatient (RCR) | payer MEDICARE, MEDICAID, SELFPAY | END 2025-03-06 23:59 | disposition home or self-care (01) | LOC: PT 09:56 | PROVIDERS: PCP Family Medicine; Visit Provider Family Medicine | DX: I87.2 Venous insufficiency (chronic) (peripheral) (principal); I89.0 Lymphedema, not elsewhere classified ==

== ENCOUNTER 2025-03-24 15:12 | Outpatient (CLI) | payer MEDICARE, MEDICAID, SELFPAY ==
--- OUTSIDE RECORDS SUMMARY | 2025-02-17 08:20 | XMS_ITS | Encounter Summary ---
Author Organization [facility] Address [address] [place] [address] Care Team Providers Care Neck Band Operator Name Role Phone Chet Khan MD Primary Care Provider [phone] Reason for Referral * Consultation (Routine) - Authorized Specialty Diagnoses / Procedures Referred By Contac t Referred To Contact Diagnoses Hypertensive chronic kidney disease with stage 1 through stage 4 chronic kidney disease, or unspecified chronic kidney disease Nam Thompson MD [address] [place] [phone] Phone: tel: fax: Referral ID Status Reason Start Date Expiration Date V isits Requested Visits Authorized [id number] Authorized 02/17/2025 08/19/2026 1 1 Reason for Visit * Reason Comments Follow-up Chronic Kidney Disease Patient is a 64 y ear old male that presents to the clinic on this date for a follow up for Chronic Kidney disease. Patient states his kidneys have been fine as far as he is aware of. Encounter Details Date Type Department Care Team (Late st Contact Info) Description 02/17/2025 9:20 AM EDT Office Visit [facility] [address] [place] [address] Nam Thompson MD [address] [place] [address] 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-MBD) (Primary Dx); Hypertensive chronic kidney disease with stage 1 through stage 4 chronic kidney disease, or unspecified chronic kidney disease; Stage 3b chronic kidney disease (CMS/HCC); Anemia due to stage 3b chronic kidney disease; Type 2 diabetes mellitus with stage 3b chronic kidney disease, unspecified whether watermelon harvesting supervisor insulin use; Hypervolemia associated with renal insufficiency; Stage 3 chronic kidney disease, unspecified whether stage 3a or 3b CKD (CMS/HCC) Social History Tobacco Use Types Packs/Day Years [...] on file Sexual Orientation Not on file documented as of this encounter Last Filed Vital Signs Vital Sign Reading Time Taken Comments Blood Pressure 103/61 02/17/2025 9:17 AM EDT Pulse 91 02/17/2025 9:17 AM EDT Temperature - - Respiratory Rate 18 02/17/2025 9:17 AM EDT Oxygen Saturation 90% 02/17/2025 9:17 AM EDT Inhaled Oxygen Concentration - - Weight 136 kg (300 lb) 02/17/2025 9:17 AM EDT Height 188 cm (6' 2 ) 02/17/2025 9:17 AM EDT Body Mass Index 38.52 02/17/2025 9:17 AM EDT documented in this encounter Miscellaneous Notes * Progress Notes - Nam Thompson MD - 02/17/2025 9:20 AM EDT Images from the original note were not included. Nephrology Outpatient Clinic Visit [facility] Patient: Andry Qureshi Primary Care Provider: Chet Khan MD (Inactive) Reason for visit/chief complaint: Follow up CKD 3b HPI/Subjective Andry Qureshi is a 64 y.o. male with a PMH of Obesity BMI 37, HTN, COPD, tobacco use disorder, whopresents for follow up of CKD. 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 Doing okay since last visit. 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 He is on Mounjaro 7.5 dose and weight is stable. He gained 50 lbs when he started on insulin. He was sick with a URI last week had to get a steroid shot yesterday and is feeling better now. ROS Review of Systems History: Past Medical History: Diagnosis Date Atrial fibrillation (CMS/HCC) CAD (coronary artery disease) COPD (chronic obstructive pulmonary disease) Hyperlipidemia Hypertension Type 2 diabetes mellitus Patient Active Problem List Diagnosis Anemia due to stage 3b chronic kidney disease Type 2 diabetes mellitus with stage 3b chronic kidney disease 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-MBD) Hypervolemia associated with renal insufficiency Hypertensive chronic kidney disease with stage 1 through stage 4 chronic kidney disease, or unspecified chronic kidney disease Obesity (BMI 35.0-39.9 without comorbidity) Past Surgical History: Procedure Laterality Date CARDIAC STENT Family History Adopted: Yes Social History Socioeconomic History Marital status: Spouse name: Not on file Number of children: Not on file Years of education: Not on file Highest education level: Not on file Occupational History Not on file Tobacco Use Smoking status: Every Day Current packs/day: 2.00 Types: Cigarettes Passive exposure: Past Smokeless tobacco: Former Substance and Sexual Activity Alcohol use: Yes Alcohol/week: 6.0 standard drinks of alcohol Types: 6 Cans of beer per week Drug use: Never Sexual activity: Not on file Other Topics Concern Not on file Social History Narrative Not on file Social Drivers of Health Financial Resource Strain: Not on file Food Insecurity: Not on file Transportation Needs: Not on file Physical Activity: Not on file Stress: Not on file Social Connections: Unknown (02/10/2023) Received from [facility] Family and Community Support Help with Day-to-Day Activities: Not on file Lonely or Isolated: Not on file Intimate Partner Violence: Unknown (02/10/2023) Received from [facility] Abuse Screen Unsafe at Home or Work/School: Not on file Feels Threatened by Someone?: Not on file Does Anyone Keep You from Contacting Others or Doint Things Outside the Home?: Not on file Physical Sign of Abuse Present: Not on file Housing Stability: Unknown (02/10/2023) Received from [facility] Housing Stability Current Living Arrangements: Not on file Potentially Unsafe Housing Conditions: Not on file Allergies Allergen Reactions Niacin Other - please document in the comment field Medications: Current Medications: Current Outpatient Medications Medication Instructions albuterol 108 (90 Base) MCG/ACT inhaler INHALE 2 PUFFS BY MOUTH EVERY 6 HOURS NEEDED FOR SHORTNESS OF BREATH OR WHEEZING apixaban (ELIQUIS) 5 mg, 2 times daily bumetanide (Bumex) 1 MG tablet Daily bumetanide (BUMEX) 2 mg, Daily cetirizine (ZyrTEC) 10 MG tablet TAKE 1 TABLET BY MOUTH ONCE DAILY NEEDED FOR ALLERGIES Continuous Blood Gluc Sensor (FreeStyle Gabe 2 Sensor) misc USE DIRECTED OR TWICE DAILY cyclobenzaprine (FLEXERIL) 10 mg, 3 times daily PRN fenofibrate micronized (LOFIBRA) 134 mg, Daily with breakfast fluticasone (Flonase) 50 MCG/ACT nasal spray USE 1 SPRAY(S) IN EACH NOSTRIL ONCE DAILY HYDROcodone-acetaminophen ([place]) 5-325 MG tablet No dose, route, or frequency recorded. Icosapent Ethyl (VASCEPA PO) Take by mouth. insulin glargine (Lantus SoloStar, Basaglar) 100 UNIT/ML injection pen Nightly insulin NPH-insulin regular (70-30) 100 UNIT/ML injection vial 2 times daily before meals lansoprazole (PREVACID) 30 mg, Daily before breakfast lovastatin (MEVACOR) 20 mg, Nightly metoprolol succinate XL (TOPROL-XL) 50 mg, 2 times daily Mounjaro 10 mg, Weekly Ozempic, 2 MG/DOSE, 8 MG/3ML solution pen-injector INJECT 2MG SUBCUTANEOUSLY ONCE A WEEK, START THEWEEK FOLLOWING YOUR LAST TRULICITY DOSE pregabalin (LYRICA) 150 mg, 2 times daily psyllium (Metamucil) 28 % packet 1 packet, 2 times daily RELION INSULIN SYRINGE 1ML/31G 31G X 5/16 1 ML misc USE DIRECTED tamsulosin (FLOMAX) 0.4 mg, Daily Trelegy Ellipta 200-62.5-25 MCG/ACT aerosol powder 1 puff Vascepa 1 g capsule 2 capsules, 2 times daily Objective Visit Vitals BP 103/61 (BP Location: Left arm, Patient Position: Sitting, BP Cuff Size: Adult long) Pulse 91 Resp 18 Ht 1.88 m (6' 2 ) Wt 136 kg (300 lb) SpO2 90% BMI 38.52 kg/m?? Smoking Status Every Day BSA 2.66 m?? Heart Rate: [91] 91 Resp: [18] 18 BP: (103)/(61) 103/61 Physical Exam: Physical Exam Constitutional: General: He is not in acute distress. Appearance: Normal appearance. He is obese. He is not ill-appearing. HENT: Head: Normocephalic and atraumatic. Right Ear: External ear normal. Left Ear: External ear normal. Nose: Nose normal. Mouth/Throat: Mouth: Mucous membranes are moist. Pharynx: Oropharynx is clear. Eyes: Conjunctiva/sclera: Conjunctivae normal. Pupils: Pupils are equal, round, and reactive to light. Cardiovascular: Rate and Rhythm: Normal rate. Pulses: Normal pulses. Pulmonary: Effort: Pulmonary effort is normal. Abdominal: General: Abdomen is flat. Musculoskeletal: General: Normal range of motion. Right lower le+ Pitting Edema present. Left lower le+ Pitting Edema present. Skin: General: Skin is warm and dry. Coloration: Skin is not jaundiced. Neurological: General: No focal deficit present. Mental Status: He is alert and oriented to person, place, and time. Mental status is at baseline. Psychiatric: Mood and Affect: Mood normal. Behavior: Behavior normal. Thought Content: Thought content normal. Judgment: Judgment normal. Laboratory: LAB RESULTS Renal Panel: No results found for: NA , K , CL , CO2 , BUN , BUNPRE , BUNPOST , CREATININE , EGFR , CA , GLU , PHOS , ALBUMIN CBC: No results found for: WBC , RBC , HGB , HCT , PLT , MCV , MCH , MCHC , RDW , NRBC Iron studies: No results found for: FERRITIN , IRON , IRONSAT , TIBC Urine studies: No results found for: CAR , CAUR , CALCIUMUR , PHOSUR , [id number] , [id number] , CREATUR MBD: No results found for: PTH , CA , CALCIUM , ICAS , PHOS , MG VITAMIN D 25 No results found for: VITD25 VITAMIN D 1,25 No results found for: VITD32 Paraproteinemia Labs: No results found for: SPEP , KAPPALAMBDA Nutritional: No results found for: PREALBUMIN , VITD25 Endocrine profile: No results found for: TESTOSTERONE , TESTOST , FSH , LH , PROLACTIN , TSH , E4UPSLL , FREET4 , CORTISOL Serum creatinine 1.8 in Apr 2024 UACR 21 Labs 02/15/2025 Vitamin d - 29 PTH 14 CBC: Hgb 15 Na 134, K 4.5, Cl 95, CO2 31, Glu 198, BUN 25, Cr 1.7, EGFR 44, Alb 3.4, Ca 9.0, Phos 3.1 Urine protein 14, creatinine 41.8, ratio 335 mg UPCR ~0.3 UA: +100 glucse, netaive blood,trace protein Imaging: Impression & Plan: 63 yo M with PMH of afib on anticoagulation, CAD, COPD, HLD, HTN, DM 2 who has been referred for evaluation of renal insufficiency. #CKD 3b #Proteinuria: #Hyperkalemia -resolved #Hypervolemia associated with renal insufficiency Etiology of CKD- DM2, obesity. He has an enlarged spleen and I am concerned based on his history hemay have underlying liver disease such as NAFLD Baseline cr 1.4-1.8 Most recent cr 1.7 eGFR 44 Chronic hypervolemia on bumex Risk factors: Metabolic syndrome, DM2, HTN RASI - none - low blood pressure/hyperkalemia SGLT2 inhibitor - none #Hyperkalemia: improved from last visit. #Anemia in CKD: Hb 10.2 g/dL. #DM2: last A1c 8.6%, uncontrolled #CKD/MBD: vit D 29, PTH 13 #Tobacco Disorder: continues to smoke cigarettes. Has quit in past. Working on quitting. #HTN in CKD -at goal <130/80 #Obesity BMI 37 -on Ozempic with weight loss >10 lbs #Anemia in CKD -at goal hgb >10 g/dL on recent labs #CKD Bone and Mineral Disease -check Vit d and pth with next labs Plan/ Recs: - Kidney function stable at baseline cr 1.7. No issues with electrolytes. Volume status stable on bumex. No changes to medications today. - Continue GLP1 now mounjaro - Not on SGLT2 in or ACEi/ARB, may benefit in future but has history of hyperkalemia nad hypotension so no urgency - Recommend stopping all soft drinks and cessation of tobacco products - Low sodium diet <2g/day - AVOID NSAIDs - labs ordered for next visit. RTC in 6 months Nam Thompson MD Division of Nephrology [facility] ORDERS PLACED THIS ENCOUNTER Orders Placed This Encounter Procedures Albumin-creatinine ratio, urine, random Standing Status: Future Expected Date: 08/16/2025 Expiration Date: 11/14/2025 Release to patient in [facility]: Immediate Renal Function Panel, Plasma Standing Status: Future Expected Date: 08/16/2025 Expiration Date: 11/14/2025 Release to patient in [facility]: Immediate CBC W/O Differential Standing Status: Future Expected Date: 08/16/2025 Expiration Date: 11/14/2025 Release to patient in [facility]: Immediate Protein, Random, Urine with Creatinine Standing Status: Future Expected Date: 08/16/2025 Expiration Date: 11/14/2025 Release to patient in [facility]: Immediate Urinalysis with reflex microscopic (Culture NOT Included) Standing Status: Future Expected Date: 08/16/2025 Expiration Date: 11/14/2025 Release to patient in [facility]: Immediate Problem List Items Addressed This Visit Anemia due to stage 3b chronic kidney disease Relevant Medications metoprolol succinate XL (Toprol-XL) 50 MG 24 hr tablet bumetanide (Bumex) 2 MG tablet Type 2 diabetes mellitus with stage 3b chronic kidney disease Relevant Medications metoprolol succinate XL (Toprol-XL) 50 MG 24 hr tablet bumetanide (Bumex) 2 MG tablet Mounjaro 10 MG/0.5ML solution auto-injector solution pen-injector 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-MBD) - Primary Relevant Medications metoprolol succinate XL (Toprol-XL) 50 MG 24 hr tablet bumetanide (Bumex) 2 MG tablet Other Relevant Orders Albumin-creatinine ratio, urine, random Renal Function Panel, Plasma CBC W/O Differential Protein, Random, Urine with Creatinine Urinalysis with reflex microscopic (Culture NOT Included) Hypervolemia associated with renal insufficiency Relevant Medications bumetanide (Bumex) 2 MG tablet Hypertensive chronic kidney disease with stage 1 through stage 4 chronic kidney disease, or unspecified chronic kidney disease Relevant Medications metoprolol succinate XL (Toprol-XL) 50 MG 24 hr tablet bumetanide (Bumex) 2 MG tablet Other Relevant Orders Albumin-creatinine ratio, urine, random Renal Function Panel, Plasma CBC W/O Differential Protein, Random, Urine with Creatinine Urinalysis with reflex microscopic (Culture NOT Included) Other Visit Diagnoses Stage 3b chronic kidney disease (CMS/HCC) Relevant Medications metoprolol succinate XL (Toprol-XL) 50 MG 24 hr tablet bumetanide (Bumex) 2 MG tablet Other Relevant Orders Albumin-creatinine ratio, urine, random Renal Function Panel, Plasma CBC W/O Differential Protein, Random, Urine with Creatinine Urinalysis with reflex microscopic (Culture NOT Included) Stage 3 chronic kidney disease, unspecified whether stage 3a or 3b CKD ([facility]/HCC) Relevant Medications metoprolol succinate XL (Toprol-XL) 50 MG 24 hr tablet bumetanide (Bumex) 2 MG tablet documented in this encounter Plan of Treatment Upcoming Encounters Date Type Department Care Team (Late st Contact Info) Description 08/18/2025 11:40 AM EDT Office Visit [place] [id number] [facility] [address] [place] [address] Nam Thompson MD [address] [place] [phone] Scheduled Orders Name Type Priority Associated Diagnoses Orde r Schedule Albumin-creatinine ratio, urine, random Lab Routine 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-MBD) Hypertensive chronic kidney disease with stage 1 through stage 4 chronic kidney disease, or unspecified chronic kidney disease Stage 3b chronic kidney disease ([facility]/HCC) Expected: 08/16/2025 (Approximate), Expires: 11/14/2025 Renal Function Panel, Plasma Lab Routine 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-MBD) Hypertensive chronic kidney disease with stage 1 through stage 4 chronic kidney disease, or unspecified chronic kidney disease Stage 3b chronic kidney disease (CMS/HCC) Expected: 08/16/2025 (Approximate), Expires: 11/14/2025 CBC W/O Differential Lab Routine 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-MBD) Hypertensive chronic kidney disease with stage 1 through stage 4 chronic kidney disease, or unspecified chronic kidney disease Stage 3b chronic kidney disease (CMS/HCC) Expected: 08/16/2025 (Approximate), Expires: 11/14/2025 Protein, Random, Urine with Creatinine Lab Routine 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-MBD) Hypertensive chronic kidney disease with stage 1 through stage 4 chronic kidney disease, or unspecified chronic kidney disease Stage 3b chronic kidney disease (CMS/HCC) Expected: 08/16/2025 (Approximate), Expires: 11/14/2025 Urinalysis with reflex microscopic (Culture NOT Included) Lab Routine 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-MBD) Hypertensive chronic kidney disease with stage 1 through stage 4 chronic kidney disease, or unspecified chronic kidney disease Stage 3b chronic kidney disease (CMS/HCC) Expected: 08/16/2025 (Approximate), Expires: 11/14/2025 Scheduled Referrals Name Type Priority Associated Diagnoses Orde r Schedule Follow Up Nephrology Outpatient Referral Routine Hypertensive chronic kidney disease with stage 1 through stage 4 chronic kidney disease, or unspecified chronic kidney disease Expected: 08/18/2025 (Approximate), Expires: 03/20/2026 documented as of this encounter Visit Diagnoses Diagnosis 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-MBD)- Primary Hypertensive chronic kidney disease with stage 1 through stage 4 chronic kidney disease, or unspecified chronic kidney disease Stage 3b chronic kidney disease (CMS/HCC) Anemia due to stage 3b chronic kidney disease Type 2 diabetes mellitus with stage 3b chronic kidney disease, unspecified whether watermelon harvesting supervisor insulin use Hypervolemia associated with renal insufficiency Stage 3 chronic kidney disease, unspecified whether stage 3a or 3b CKD (CMS/HCC) documented in this encounter Additional Health Concerns Assessment Noted Time A fall risk assessment has been complete d for the patient 06/04/2023 3:00 PM EST A Body Mass Index follow-up plan has been documented for the patient 02/17/2025 9:47 AM EDT documented as of this encounter Care Teams Neck Band Operator Relationship Specialty Start Date End Date Chet Kahn MD [address] [place] [phone] PCP - General 10/28/21 documented as of this encounter
[2025-03-24 20:22] LABS: Hematocrit 44.5 % (42.0-52.0); Hemoglobin 14.3 g/dL (14.1-18.0); Immature Granulocytes % 0.6 %; Mean Corpuscular HGB Conc 32.1 g/dL (31.8-35.4); Mean Corpuscular Hemoglobin 29.6 pg (27.0-31.2); Mean Corpuscular Volume 92.1 fl (80-94); Nucleated Red Blood Cells % 0 %; Platelet Count 199 K/mm3 (142-424); Red Blood Count 4.83 M/mm3 (4.60-6.20); Red Cell Distribution Width-SD 50.4 fL; White Blood Count 8.7 K/mm3 (4.8-10.8)
[2025-03-24 20:33] LABS: Hemoglobin A1C 8.1 % (4.0-6.0)
[2025-03-24 20:53] LABS: Alanine Aminotransferase 28 U/L (12-78); Albumin Level 4.0 g/dl (3.5-5.0); Albumin/Globulin Ratio 1.3 (1.1-1.8); Alkaline Phosphatase 79 U/L (38-126); Anion Gap 10.9 mEq/L (5-15); Aspartate Amino Transferase 49 U/L (17-59); Bilirubin,Total 0.5 mg/dl (0.2-1.3); Blood Urea Nitrogen 32 mg/dl (9-20); Calcium 9.8 mg/dl (8.4-10.2); Carbon Dioxide 30 mmol/L (22.0-30.0); Chloride 95 mmol/L (98-107); Cholesterol 118 mg/dl (140-200); Creatinine,Serum 1.80 mg/dl (0.66-1.25); Estimated Glomerular Filt Rate 38 ml/min (>60); GFR (African American) 46 ML/MIN (>60); Globulin 3.0 g/dL (1.3-3.2); Glucose 193 mg/dl (74-100); HDL Cholesterol 30 mg/dl (40-60); Potassium 4.9 mmoL/L (3.5-5.1); Sodium 131 mmol/L (136-145); Total Protein,Serum 7.0 g/dl (6.3-8.2); Triglycerides 344 mg/dl (30-150)
--- OUTSIDE RECORDS SUMMARY | 2025-03-27 11:19 | XMS_ITS | Clinical Summary ---
Author Organization [facility] Address [address] [place] [address] Phone Care Team Providers Care Scene Painter Name Role Phone Odalys Burton Unavailable Conditions or Problems Problem Name Problem Code Onset Date Status Entry Date Provider Comment Standard Description Annotate PSA B96.89 (ICD-10-CM) 07/18 Active 07/18 Marni Yañez Other specified bacterial agents as the cause of diseases classified elsewhere MRSA 526103623 (SNOMED CT) 07/18 Active 07/18 Marni Yañez Methicillin resistant Staphylococcus aureus infection Obesity, unspecified 383911242 (SNOMED CT) 07/13 Active 07/13 Angeli Z Obesity Otitis externa 9910628 (SNOMED CT) 07/11 Active 07/11 [facility] Nordan Otitis externa Tobacco abuse 41075607 (SNOMED CT) 07/11 Active 07/11 [facility] Mora Tobacco dependence syndrome Diabetes mellitus, type II, poorly controlled E11.65 (ICD-10-CM) 07/11 Active 07/11 [facility] Mora Type 2 diabetes mellitus with hyperglycemia Medications Medication Instructions Start Date Stop Date Generic Name [facility] Provider FLUCONAZOLE 200 MG TABS one by mouth daily x 7 days 07/14 FLUCONAZOLE [id number] Thad Herrera MD BACTRIM DS 800-160 MG TABS 1 by mouth twice a day 07/20 SULFAMETHOXAZOLE- TRIMETHOPRIM [id number] Thad Herrera MD CIPRO 500 MG TABS 1 by mouth twice a day 07/20 CIPROFLOXACIN HCL 55984713100 Thad Herrera MD METFORMIN HCL 1000 MG TABS METFORMIN HCL [id number] Bev Mays GABAPENTIN 300 MG CAPS GABAPENTIN [id number] Bev Mays CYCLOBENZAPRINE HCL 5 MG TABS CYCLOBENZAPRINE HCL [id number] Bev Mays WARFARIN SODIUM 5 MG TABS WARFARIN SODIUM 41683470964 Bev Mays METOPROLOL SUCCINATE ER 25 MG [id number] METOPROLOL SUCCINATE [id number] Bev Mays LEVOFLOXACIN 750 MG TABS LEVOFLOXACIN [id number] Bev Mays DIGOXIN 250 MCG TABS DIGOXIN [id number] Bev Mays Medications Administered No information available. [...]
--- OUTSIDE RECORDS SUMMARY | 2025-03-27 11:19 | XMS_ITS | Encounter Summary ---
Author Organization [facility] Address [address] [place] [address] Care Team Providers Care Apprentice Cosmetologist Name Role Phone Chet Khan MD Primary Care Provider [phone] Encounter Details Date Type Department Care Team (Latest Contact Info) Description 02/17/2025 Travel Social History Tobacco Use Types Packs/Day Years Used Date Smoking Tobacco: Every Day Cigarettes Passive Smoke Exposure: Past Smokeless Tobacco: Former Alcohol Use Standard Drinks/Week Comments Yes 6 (1 standard drink = 0.6 oz pur e alcohol) Sex and Gender Information Value Date Recorded Sex Assigned at Not on file Legal Sex Male 6:11 PM EDT Gender Identity Not on file Sexual Orientation Not on file documented as of this encounter Plan of Treatment Upcoming Encounters Date Type Department Care Team (Late st Contact Info) Description 08/18/2025 11:40 AM EDT Office Visit [facility] [address] [place] [address] Nam Thompson MD [address] [place] [phone] documented as of this encounter Visit Diagnoses Not on filedocumented in this encounter Additional Health Concerns Assessment Noted Time A fall risk assessment has been complete d for the patient 06/04/2023 3:00 PM EST A Body Mass Index follow-up plan has been documented for the patient 02/17/2025 9:47 AM EDT documented as of this encounter Care Teams Apprentice Cosmetologist Relationship Specialty Start Date End Date Chet Khan MD [address] [place] [id number] PCP - General 10/28/21 documented as of this encounter
--- OUTSIDE RECORDS SUMMARY | 2025-03-27 11:19 | XMS_ITS | Clinical Summary ---
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 Not on file 02/2023 Does Anyone Keep You from Co ntacting Others or Doint Things Outside the Home? Not on file 02/10/2023 Physical Sign of Abuse Present Not on file 1 Housing Stability Answer Date Recorded Current Living Arrangements Not on file 02/01 Potentially Unsafe Housing Conditions Not on rajinder e 02/10/2023 Family and Community Support Answer Francisco e Recorded Help with Day-to-Day Activities Not on file 02/10/2023 Lonely or Isolated Not on file 02/10/2023 Employment Answer Date Recorded Do you want help finding or keeping work or a josh b? Not on file 02/10/2023 Disabilities Answer Date Recorded Concentrating, Remembering, or Making Decisions Difficulty Not on file 02/10/2023 Doing Errands Independently Difficulty Not on fi le 02/10/2023 Education Answer Date Recorded Help with school or training? Not on file Preferred Language Not on file 02/10/2023 Sex and Gender Information Value Date Recorded Sex Assigned at Not on file Legal Sex Male 1:39 PM EDT Gender Identity Not on file Sexual Orientation Not on file Plan of Treatment Health Maintenance Due Date Last Done Comments ANNUAL PHYSICAL 1960 HEPATITIS C SCREENING 1960 TDAP/TD VACCINES (1 - Tdap) 1977 COLOGUARD 2003 COLON CANCER SCREENING 5 YEAR SIGMOIDOSCOPY 2003 COLONOSCOPY 2003 [address] CANCER SCREENING 2003 CT COLONOGRAPHY 2003 FECAL OCCULT BLOOD TEST 2003 FIT Testing (1 year) 2003 Pneumococcal Vaccine 50+ (1 of 1 - PCV) 2008 ZOSTER VACCINE (1 of 2) 2008 AAA SCREEN ONCE 2023 INFLUENZA VACCINE 12/02/2024 COVID-19 Vaccine ( - 2023- season) 2025
--- OUTSIDE RECORDS SUMMARY | 2025-03-27 11:19 | XMS_ITS | Clinical Summary ---
Author Organization [facility] Address [address] [place] [address] Care Team Providers Care Market Superintendent Name Role Phone Chet Khan MD Primary Care Provider + [phone] Allergies Active Allergy Reactions Criticality Noted Date Comments Niacin Other - please docum ent in the comment field Medium 07/08/2013 Medications apixaban (Eliquis) 5 MG tablet Take 1 tablet (5 mg) by mouth 2 (two) times a day. Active bumetanide (Bumex) 1 MG tablet Take by mouth 1 (one) time each day. Active cyclobenzaprine (Flexeril) 10 MG tablet Take 1 tablet (10 mg) by mouth 3 (three) times a day if needed. Active HYDROcodone-keny taminophen (Seward) 5-325 MG tablet Active insulin glargine (Lantus [...] Icosapent Ethyl (VASCEPA PO) Take by mouth. Ac tive psyllium (Metamucil) 28 % packet Take 1 [...] SHORTNESS OF BREATH OR WHEEZING 3 Active Continuous Blood Gluc Sensor (FreeStyle Gabe 2 Sensor) misc USE DIRECTED OR TWICE DAILY 3 Active fluticasone (Flonase) 50 MCG/ACT nasal spray USE 1 SPRAY(S) IN EACH NOSTRIL ONCE DAILY 3 Active RELION INSULIN SYRINGE 1ML/31G 31G X /16 1 ML misc USE DIRECTED 3 Active Vascepa 1 g capsule Take 2 capsules (2 g) by mouth 2 (two) times a day. 4 Active Trelegy Ellipta 200-62.5-25 MCG/ACT aerosol powder Inhale 1 puff. 4 Active metoprolol succinate XL (Toprol-XL) 50 MG 24 hr tablet Take 1 tablet by mouth 2 times a day. 5 Active bumetanide (Bumex) 2 MG tablet Take 1 tablet by mouth daily. 5 Active Mounjaro 10 MG/0.5ML solution auto-injector solution pen-injector Inject 0.5 mL under the skin 1 time per week. Active Active Problems Problem Noted Date Diagnosed [...] disease, or unspecified chronic kidney disease 01/08/2024 Encounters Date Type Department Care Team Description 02/17/2025 9:20 AM EDT Office Visit [facility] [address] [place] [phone] Nam Thompson MD 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-MBD) (Primary Dx); Hypertensive chronic kidney disease with stage 1 through stage 4 chronic kidney disease, or unspecified chronic kidney disease; Stage 3b chronic kidney disease (CMS/HCC); Anemia due to stage 3b chronic kidney disease; Type 2 diabetes mellitus with stage 3b chronic kidney disease, unspecified whether jail insulin use; Hypervolemia associated with renal insufficiency; Stage 3 chronic kidney disease, unspecified whether stage 3a or 3b CKD ([facility]) 02/17/2025 Travel from Last 3 Months Immunizations Immunization Administration Dates Next Due Pneumococcal 20-keegan Conj Vaccine 03/14/2024 Social History Tobacco Use Types Packs/Day Years [...] Pulse 91 02/17/2025 9:17 AM EDT Temperature 36.6 C (97.8 F) 04/22/2024 1:19 PM EST Respiratory Rate 18 02/17/2025 9:17 AM EDT Oxygen Saturation 90% 02/17/2025 9:17 AM EDT Inhaled Oxygen Concentration - - Weight 136 kg (300 lb) 02/17/2025 9:17 AM EDT Height 188 cm (6' 2 ) 02/17/2025 9:17 AM EDT Body Mass Index 38.52 02/17/2025 9:17 AM EDT Plan of Treatment Upcoming Encounters Date Type Department Care Team (Late st Contact Info) Description 08/18/2025 11:40 AM EDT Office Visit [facility] [address] [place] [phone] Nam Thompson MD [address] [place] [address] Health Maintenance Due Date Last Done Comments [facility]-Depression Screening 1960 [facility]-Diabetes: Hemoglobin A1C 1960 [facility]-Hepatitis C Screening 1960 [facility]-Medicare Annual Wellness (AWV) 1960 [facility]-Infant/Child/Adol SDOH Screenings 1960 Diabetes: Dental Exam 1968 [...] 2018 [facility]-Abdominal Aortic Aneurysm (AAA) Screening 2023 [id number] Vaccine (3 - season) 2025 11/23/2020, 10/26/2020 [facility]-Influenza Vaccine (#1) 2025 [facility]-Pneumococcal Vaccine: 50+ Years Completed 03/14/2024 [facility]-Obesity Intervention Completed 025, 04/22/2024, 01/08/2024, Additional history exists HPV Vaccines Aged Out [...] complete this topic Insurance MEDICARE Care Teams Market Superintendent Relationship Specialty Start Date End Date Chet Khan MD [address] [place] [id number] PCP - General 10/28/21
== END 2025-03-24 23:59 ==
LOC: LAB.DROPOF 03-27 10:52
PROVIDERS: PCP Family Medicine; Visit Provider Family Medicine
DX: J44.9 Chronic obstructive pulmonary disease, unspecified (principal); E11.69 Type 2 diabetes mellitus with other specified complication; E66.9 Obesity, unspecified
CPT/HCPCS: 80053; 80061; 83036; 85025